=== PATIENT | male | born 1960 | race African-American/Black ===

== ENCOUNTER 2022-01-11 11:14 | Emergency (ER) | payer MEDICARE, OTHER ==
[~2022-01-11] VITALS: Ht 172.7 cm; Wt 70.0 kg
[~2022-01-11 11:14] MED LIST: ACET-704 PO; AMLO-187 PO; ASPI-482 PO; ATOR20TA58 PO; Bumetanide PO; CHOL10003 PO; CLON0.3T PO; CLOP75TA57 PO; HYDR100T24 PO; Hydralazine Hcl PO; INSU100I13 SQ; INSU100I17 SQ; LABE200T24 PO; LOSA-73 PO; METO5TAB PO; SENN8.6T99 PO; TRAZ-118 PO
[2022-01-11 11:40] LABS: BASO # 0.1 x10^3/uL (0.0-0.2); BASO % 3 % (0-3); EOS # 0.2 x10^3/uL (0.0-0.7); EOS % 5 % (0-3); HEMATOCRIT 33.4 % (39.0-53.0); HEMOGLOBIN 10.6 g/dL (13.0-17.5); LYMPH # 1.3 x10^3/uL (1.0-4.8); LYMPH % 31 % (24-48); MEAN CORPUSCULAR HEMOGLOBIN 31 pg (25-35); MEAN CORPUSCULAR HGB CONC 32 g/dL (31-37); MEAN CORPUSCULAR VOLUME 98 fL (79-100); MONO # 0.5 x10^3/uL (0.0-1.1); MONO % 12 % (0-9); NEUT % 49 % (31-73); PLATELET COUNT 140 x10^3/uL (140-400); RED BLOOD COUNT 3.41 x10^6/uL (4.30-5.70); RED CELL DISTRIBUTION WIDTH 14.2 % (11.5-14.5); WHITE BLOOD COUNT 4.1 x10^3/uL (4.0-11.0)
[2022-01-11 11:47] LABS: CALCIUM 8.7 mg/dL (8.5-10.1); CREATININE 8.9 mg/dL (0.7-1.3); GFR 7.4; POTASSIUM 4.6 mmol/L (3.5-5.1)
[2022-01-11 11:55] LABS: ALBUMIN 3.6 g/dL (3.4-5.0); ALBUMIN/GLOBULIN RATIO 1.1 (1.0-1.7); MAGNESIUM 2.7 mg/dL (1.8-2.4); TOTAL BILIRUBIN 0.3 mg/dL (0.2-1.0)
--- NOTE | 2022-01-11 13:35 | PHYS DOC ---
Past Medical History Past Surgical History: Other Smoking Status: Never Smoker Alcohol Use: None General Adult EDM: Chief Complaint: HYPOGLYCEMIA HPI: HPI: Patient is a 61-year-old male who presents emergency department via EMS wallpaper cleaner transport. Personal Banking Representative reports they were called to the dialysis unit [facility] in [facility] for unresponsive patient wallpaper cleaner reports patient's initial blood sugar was 31, difficulty starting IV line was given 1 mg of glucagon and transported to the emergency department, repeat in route blood glucose 79. Patient arrives and is alert and oriented x3 stating that he has no chief complaint, feels a little foggy in the head, did not eat after taking his morning insulin dosing, states he just went to dialysis to have his Tuesday hemodialysis performed. Patient denies physical complaints or physical concerns. Review of Systems: Review of Systems: 14 body systems of review of systems have been reviewed. See HPI for pertinent positives and negative responses, otherwise all other systems are negative, nonpertinent or noncontributory. Constitutional: Negative except as outlined in HPI above. Skin: Negative except as outlined in HPI above. Eyes: Negative except as outlined in HPI above. HENT: Negative except as outlined in HPI above. Respiratory: Negative except as outlined in HPI above. Cardiovascular: Negative except as outlined in HPI above. GI: Negative except as outlined in HPI above. : Negative except as outlined in HPI above. Musculoskeletal: Negative except as outlined in HPI above. Integument: Negative except as outlined in HPI above. Neurologic: Negative except as outlined in HPI above. Endocrine: Negative except as outlined in HPI above. Lymphatic: Negative except as outlined in HPI above. Psychiatric: Negative except as outlined in HPI above. Heart Score: C/O Chest Pain: No Risk Factors: Risk Factors: DM, Current or recent (<one month) smoker, HTN, HLP, family history of CAD, obesity. Risk Scores: Score 0 - 3: 2.5% MACE over next 6 weeks - Discharge Home Score 4 - 6: 20.3% MACE over next 6 weeks - Admit for Clinical Observation Score 7 - 10: 72.7% MACE over next 6 weeks - Early Invasive Strategies Allergies: Allergies: Allergies Coded Allergies Type Severity Reaction Last Updated Verified rosuvastatin Allergy Intermediate 01/11/22 No tramadol Allergy Intermediate 01/11/22 Yes nitroglycerin Adverse Reaction Intermediate Nausea and Vomiting 01/11/22 Yes Physical Exam: PE: Constitutional: Well developed, well nourished, no acute distress, non-toxic appearance. 61-year-old male in no apparent distress. HENT: Normocephalic, atraumatic. Eyes: Conjunctiva normal, no discharge. Neck: Normal range of motion, no stridor. Cardiovascular: No cyanosis appreciated, distal cap refill less than 2 seconds. Lungs & Thorax: Patient is in no respiratory distress, no audible adventitious lung sounds appreciated. Abdomen: Nontender, no abnormalities noted. Skin: Warm, dry, no erythema, no rash. Back: No tenderness, no deformities. Extremities: No tenderness, no cyanosis, no clubbing, ROM intact, no edema. Patient has dialysis fistula to left upper extremity with positive bruit and thrill. Neurologic: Alert and oriented X 3, normal motor function, normal sensory function, no focal deficits noted. Psychologic: Affect normal, judgement normal, mood normal. Current Patient Data: Labs: Laboratory Tests Test 01/11/22 11:18 01/11/22 11:20 01/11/22 13:27 Glucose (Fingerstick) 91 mg/dL (70-99) 148 mg/dL (70-99) H White Blood Count 4.1 x10^3/uL (4.0-11.0) Red Blood Count 3.41 x10^6/uL (4.30-5.70) L Hemoglobin 10.6 g/dL (13.0-17.5) L Hematocrit 33.4 % (39.0-53.0) L Mean Corpuscular Volume 98 fL (79-100) Mean Corpuscular Hemoglobin 31 pg (25-35) Mean Corpuscular Hemoglobin Concent 32 g/dL (31-37) Red Cell Distribution Width 14.2 % (11.5-14.5) Platelet Count 140 x10^3/uL (140-400) Neutrophils (%) (Auto) 49 % (31-73) Lymphocytes (%) (Auto) 31 % (24-48) Monocytes (%) (Auto) 12 % (0-9) H Eosinophils (%) (Auto) 5 % (0-3) H Basophils (%) (Auto) 3 % (0-3) Neutrophils # (Auto) 2.0 x10^3/uL (1.8-7.7) Lymphocytes # (Auto) 1.3 x10^3/uL (1.0-4.8) Monocytes # (Auto) 0.5 x10^3/uL (0.0-1.1) Eosinophils # (Auto) 0.2 x10^3/uL (0.0-0.7) Basophils # (Auto) 0.1 x10^3/uL (0.0-0.2) Sodium Level 142 mmol/L (136-145) Potassium Level 4.6 mmol/L (3.5-5.1) Chloride Level 106 mmol/L (98-107) Carbon Dioxide Level 26 mmol/L (21-32) Anion Gap 10 (6-14) Blood Urea Nitrogen 47 mg/dL (8-26) H Creatinine 8.9 mg/dL (0.7-1.3) H Estimated GFR (Cockcroft-Gault) 7.4 BUN/Creatinine Ratio 5 (6-20) L Glucose Level 105 mg/dL (70-99) H Calcium Level 8.7 mg/dL (8.5-10.1) Phosphorus Level 3.0 mg/dL (2.6-4.7) Magnesium Level 2.7 mg/dL (1.8-2.4) H Total Bilirubin 0.3 mg/dL (0.2-1.0) Aspartate Amino Transferase (AST) 15 U/L (15-37) Alanine Aminotransferase (ALT) 21 U/L (16-63) Alkaline Phosphatase 116 U/L (46-116) Total Protein 7.0 g/dL (6.4-8.2) Albumin 3.6 g/dL (3.4-5.0) Albumin/Globulin Ratio 1.1 (1.0-1.7) Laboratory Tests 01/11/22 11:20 Laboratory Tests 01/11/22 11:20 Vital Signs: Vital Signs Date Time Temp Pulse Resp B/P (MAP) Pulse Ox O2 Delivery O2 Flow Rate FiO2 01/11/22 11:29 98.4 75 16 128/65 (86) 97 Room Air 98.4 EKG: EKG: [] Radiology/Procedures: Radiology/Procedures: [] Course & Med Decision Making: Course & Med Decision Making Pertinent Labs and Imaging studies reviewed. (See chart for details) 61-year-old male, vital signs reviewed, resents emergency department transported by EMS for altered mental status with blood sugar 31. Physical examination is unremarkable, will feed patient and repeat blood sugar, CBC, CMP. Urinalysis assay. The patient has not given urine sample, reports he does not make much urine, patient CBC and CMP unremarkable except for BUN and creatinine consistent with needing hemodialysis, patient's repeat bedside fingerstick 148, I called the [facility] dialysis center states they are able to take patient at this time, discussed with patient eating after taking morning insulin in the future, upon reevaluation of the patient, patient states he feels fine and is ready to be discharged, discussed with patient traveling straight to the [facility] for hemodialysis today, patient has family member at bedside who will drive him there. Discussed with patient strict follow-up with primary care soon, return ER precautions and concerns were reviewed, patient gave verbal understanding of and is amenable to ED discharge planning. Discussed with the patient all findings and diagnostic testing as well as the need to follow-up with their primary care provider for further evaluation and treatment or return to the ED if any new or worsening symptoms. Strict return precautions were also discussed at length, the patient voiced understanding and agreement with the discharge planning. The patient was nontoxic in appearance, in no apparent distress, and hemodynamically stable at the time of disposition. Shakila Disclaimer: Shakila Disclaimer: This electronic medical record was generated, in whole or in part, using a voice recognition dictation system. Departure Departure Impression: Primary Impression: Hypoglycemia Additional Impression: History of end stage renal disease Disposition: HOME / SELF CARE / HOMELESS Condition: GOOD Referrals: NO PCP (PCP) Additional Instructions: You were transported today to the emergency department from your dialysis center for altered mental status. The transporting wallpaper cleaner noticed your blood sugar was 31 and gave you a intramuscular injection of glucagon. When you arrived to the emergency department you were fed, your blood glucose was monitored, you had not shown any signs of glycemia or hyperglycemia, your lab is within normal limits other than your kidney function test. Your final glucose in the emergency department was 148. I have called the [facility] dialysis unit and they are ready to accept you for your Tuesday hemodialysis. Please go directly to the dialysis unit for hemodialysis today. Please remember to eat breakfast after taking your morning dialysis in the future to prevent any further hypoglycemic episodes. Thank you for visiting our Emergency Department. It was a pleasure taking care of you today in the emergency department and we appreciate you trusting us with your care. If any additional problems come up don't hesitate to return to visit us. Please follow up with your primary care provider so they can plan additional care if needed and know about the problem that you had. If symptoms worsen come back to the Emergency Department. Any concerning symptoms that start such as chest pain, shortness of air, weakness or numbness on one side of the body, running high fevers or any other concerning symptoms return to the ER. MILLIE HAGER APRN Jan 11, 2022 13:35
[2022-01-11 13:45] VITALS: BP 139/65
== END 2022-01-11 13:49 | disposition home or self-care (01) ==
LOC: ER 11:14
DX: E16.2 Hypoglycemia, unspecified (principal); N18.6 End stage renal disease; Z99.2 Dependence on renal dialysis; Z88.6 Allergy status to analgesic agent; Z88.8 Allergy status to other drugs, medicaments and biological substances
CPT/HCPCS: 36415; 80053; 82962; 83735; 84100; 85025; 99283

== ENCOUNTER 2022-04-02 14:00 | Inpatient (IN) | payer MEDICARE ==
[~2022-04-02] VITALS: Ht 172.7 cm; Wt 76.2 kg
--- NOTE | 2022-04-02 14:12 | PHYS DOC ---
Past Medical History Past Surgical History: Other Smoking Status: Never Smoker Alcohol Use: None General Adult EDM: Chief Complaint: SYNCOPE HPI: HPI: Patient is a 61 year old male who presents with was at [facility] dialysis in the [place] today and the staff state that the needle had come out and patient was bleeding profusely and syncopal. Staff states that the patient was unconscious for 5 minutes and he had 500 to 750 cc of blood on the floor under him. They gave him 600 mL of normal saline. Patient is alert and oriented x4 this time. Patient states he was feeling fine prior. He complains of generalized weakness, lethargy, " vision is not as bright", shortness of breath, chest pain. Rates pain a 6 out of 10. He has a history of defibrillator pacemaker, diabetes, hypertension, cardiac arrest, NM, renal failure. He takes a baby aspirin a day. He gets dialysis Fridays. Review of Systems: Review of Systems: Constitutional: Denies fever or chills. [] Eyes: Denies change in visual acuity. +Vision dark [] HENT: Denies nasal congestion or sore throat. [] Respiratory: Denies cough or +shortness of breath. [] Cardiovascular: +chest pain or denies edema. [] GI: Denies abdominal pain, nausea, vomiting, bloody stools or diarrhea. [] : Denies dysuria. [] Musculoskeletal: Denies back pain or joint pain. +generalized weakness[] Integument: Denies rash. [] Neurologic: Denies headache, focal weakness or sensory changes. +syncope [] Endocrine: Denies polyuria or polydipsia. [] Lymphatic: Denies swollen glands. [] Psychiatric: Denies depression or anxiety. [] Heart Score: C/O Chest Pain: Yes HEART Score for Chest Pain: HEART Score for Chest Pain Response (Comments) Value History Moderately Suspicious 1 ECG Nonspecific Repolarizatio 1 Age >45 - < 65 1 Risk Factors >3 Risk Factors or Hx CAD 2 Troponin < Normal Limit 0 Total 5 Risk Factors: Risk Factors: DM, Current or recent (<one month) smoker, HTN, HLP, family history of CAD, obesity. Risk Scores: Score 0 - 3: 2.5% MACE over next 6 weeks - Discharge Home Score 4 - 6: 20.3% MACE over next 6 weeks - Admit for Clinical Observation Score 7 - 10: 72.7% MACE over next 6 weeks - Early Invasive Strategies Allergies: Allergies: Allergies Coded Allergies Type Severity Reaction Last Updated Verified rosuvastatin Allergy Intermediate 01/11/22 No tramadol Allergy Intermediate 01/11/22 Yes nitroglycerin Adverse Reaction Intermediate Nausea and Vomiting 01/11/22 Yes Physical Exam: PE: Constitutional: Well developed, well nourished, no acute distress, non-toxic appearance. [] HENT: Normocephalic, atraumatic, bilateral external ears normal, oropharynx moist, no oral exudates, nose normal. [] Eyes: PERRLA, EOMI, conjunctiva normal, no discharge. [] Neck: Normal range of motion, no tenderness, supple, no stridor. [] Cardiovascular:Heart rate regular paced rhythm, no murmur [] Lungs & Thorax: Bilateral breath sounds clear to auscultation [] Abdomen: Bowel sounds normal, soft, no tenderness, no masses, no pulsatile masses. [] Skin: Warm, dry, no erythema, no rash. [] Back: No tenderness, no CVA tenderness. [] Extremities: No tenderness, no cyanosis, no clubbing, ROM intact, no edema. [] Neurologic: Alert and oriented X 3, normal motor function, normal sensory function, no focal deficits noted. [] Psychologic: Affect normal, judgement normal, mood normal. [] EKG: EK and read by Dr. Roland as a sinus rhythm with atrial premature complexes but no STEMI Radiology/Procedures: Radiology/Procedures: [] Impression: [facility] [address] [place] [address] IMAGING REPORT Signed PATIENT: Wyatt Aviles ACCOUNT: [id number] : 1960 LOCATION: ER AGE: 61 SEX: M EXAM STATUS: REG ER ORD. PHYSICIAN: MARYLIN ANAYA APRN REASON: syncope PROCEDURE: CT HEAD WO CONTRAST Exam Date: 04/02/2022 3:[address] HEAD/BRAIN WO Indication: Reason: syncope / Spl. Instructions: / History: . TECHNIQUE: Head CT was performed without intravenous contrast. One or more of the following dose reduction techniques were utilized: *Automated exposure control (AEC) *Adjustment of mA and/or kV according to patient size *Use of iterative reconstruction technique *CT scan done according to ALARA, or ALARA/IMAGE GENTLY FINDINGS: The ventricles and sulci are normal for the patient's stated age. Patchy ill- defined low attenuation areas in the subcortical and periventricular white matter bilaterally are consistent with microvascular disease. There is no evidence of acute intracranial hemorrhage, extra-axial collection, mass effect, midline shift, or acute territorial infarct. No lesion of the skull base or the calvarium is seen. The visualized paranasal sinuses, mastoid air cells and orbits are normal in appearance. IMPRESSION: No evidence for acute intracranial abnormality. Microvascular disease noted. Electronically signed by: Tita Morgan MD (04/02/2022 3:56 PM) [id number] DICTATED and SIGNED BY: TITA MORGAN MD DATE: 04/02/22 1557 [facility] [address] [place] [address] IMAGING REPORT Signed PATIENT: Wyatt Aviles ACCOUNT: [id number] : 1960 LOCATION: ER AGE: 61 SEX: M EXAM STATUS: REG ER ORD. PHYSICIAN: MARYLIN ANAYA APRN REASON: chest pain, PROCEDURE: PORTABLE CHEST 1V Single AP view of the chest. Comparison: 07/26/2014. Indication: Chest pain Findings: Loop recorder device is identified. The heart is at the upper limits of normal. There is no pneumothorax or effusion. No air space or interstitial disease. Impression: 1. No acute cardiopulmonary process. Electronically signed by: Aidan Adams MD (04/02/2022 3:42 PM) [id number] DICTATED and SIGNED BY: AIDAN ADAMS MD DATE: 04/02/22 1544 Course & Med Decision Making: Course & Med Decision Making Pertinent Labs and Imaging studies reviewed. (See chart for details) See HPI. Alert and oriented x4. Speaks in full clear sentences. Answers questions correctly. Unsure of who his coal cager is at this time. Seems slightly lethargic. Moving all extremities equally with equal strength and switchboard clerk. Vital signs at this time are within normal limits. Lungs are clear to auscultation all lobes. Patient is on Plavix. CT head and chest x-ray show no acute findings. Patient's orthostatic vitals are positive for orthostatic hypotension. Layin/79, 60; sitting 130/60, 66 heart rate; standing 116/53, 62 heart rate. When patient sat up and stood up he became dizzy both times. Patient states he still feeling dizzy as he sitting in the bed. We have had a hard time getting a line and blood on this patient. Nursing staff still trying to get a peripheral line on this patient. Patient states he would like to stay for admission. Patient admitted to hospitalist. [] Shakila Disclaimer: Shakila Disclaimer: This electronic medical record was generated, in whole or in part, using a voice recognition dictation system. Departure Departure Impression: Primary Impression: Orthostatic hypotension Additional Impressions: Syncope Qualified Codes: R55 - Syncope and collapse Dizziness Disposition: ADMITTED INPATIENT Admitting Physician: SEB Condition: STABLE Referrals: NO PCP (PCP) MARYLIN ANAYA COTTAGE MASTER April 02, 2022 14:12
[2022-04-02 15:05] LABS: BASO # 0.1 x10^3/uL (0.0-0.2); BASO % 1 % (0-3); EOS # 0.1 x10^3/uL (0.0-0.7); EOS % 3 % (0-3); HEMATOCRIT 30.3 % (39.0-53.0); HEMOGLOBIN 9.8 g/dL (13.0-17.5); LYMPH # 1.3 x10^3/uL (1.0-4.8); LYMPH % 30 % (24-48); MEAN CORPUSCULAR HEMOGLOBIN 32 pg (25-35); MEAN CORPUSCULAR HGB CONC 32 g/dL (31-37); MEAN CORPUSCULAR VOLUME 98 fL (79-100); MONO # 0.5 x10^3/uL (0.0-1.1); MONO % 12 % (0-9); NEUT # 2.3 x10^3/uL (1.8-7.7); NEUT % 54 % (31-73); PLATELET COUNT 126 x10^3/uL (140-400); RED CELL DISTRIBUTION WIDTH 14.7 % (11.5-14.5); WHITE BLOOD COUNT 4.3 x10^3/uL (4.0-11.0)
[2022-04-02 15:26] LABS: CALCIUM 7.9 mg/dL (8.5-10.1); CREATININE 5.8 mg/dL (0.7-1.3); GFR 12.1; POTASSIUM 4.8 mmol/L (3.5-5.1)
[2022-04-02 15:33] LABS: ALBUMIN 2.9 g/dL (3.4-5.0); MAGNESIUM 2.2 mg/dL (1.8-2.4); TOTAL BILIRUBIN 0.4 mg/dL (0.2-1.0); TOTAL PROTEIN 5.8 g/dL (6.4-8.2)
--- NOTE | 2022-04-02 15:45 | RAD ---
Single AP view of the chest. Comparison: 07/26/2014. Indication: Chest pain Findings: Loop recorder device is identified. The heart is at the upper limits of normal. There is no pneumoth orax or effusion. No air space or interstitial disease. Impression: 1. No acute cardiopulmonary process. Electronically signed by: Aidan Adams MD (04/02/2022 3:42 PM) [id number]
--- NOTE | 2022-04-02 15:58 | RAD ---
Exam Date: 04/02/2022 3:[address] HEAD/BRAIN WO Indication: Reason: syncope / Spl. Instructions: / History: . TECHNIQUE: Head CT was performed without intravenous contrast. One or more of the following dose re duction techniques were utilized: *Automated exposure control (AEC) *Adjustment of mA and/or kV according to patient size *Use of iterative reconstruction technique *CT scan done according to ALARA, or ALARA/IMAGE GENTLY FINDINGS: The ventricles and sulci are normal for the patient's stated age. Patchy ill-defined low attenuation areas in the subcortical and periventricular white matter bilaterally are consistent with microvascu lar disease. There is no evidence of acute intracranial hemorrhage, extra-axial collection, mass ef fect, midline shift, or acute territorial infarct. No lesion of the skull base or the calvarium is se en. The visualized paranasal sinuses, mastoid air cells and orbits are normal in appearance. IMPRESSION: No evidence for acute intracranial abnormality. Microvascular disease noted. Electronically signed by: Tima Morgan MD (04/02/2022 3:56 PM) [id number]
[2022-04-02] MEDS ORDERED: IV NORMAL SALINE 500ML BAG 500 ML IV ONE (17:30)
[2022-04-02] MEDS ORDERED: ACETAMINOPHEN 325 MG TABLET. PO PRN (19:30)
[2022-04-02] MEDS ORDERED: ELECTROLYTE (NON-ICU) PROTOCOL. MC PRN (19:30)
[2022-04-02] MEDS ORDERED: oxyCODONE/APAP 5/325 1 TAB TABLET PO PRN (19:30)
[2022-04-02] MEDS ORDERED: CALCIUM CARBONATE 500 MG TAB.CHEW PO PRN (19:30)
[2022-04-02] MEDS ORDERED: traZODone 50 MG TABLET. PO PRN (19:30)
--- NOTE | 2022-04-02 19:33 | PDOC1 ---
History and Physical Date of Service: DOS: DATE: 04/02/22 TIME: 19:13 Chief Complaint: Chief Complain: syncope during dialysis History of Present Illness: HPI: 61-year-old male at dialysis today in [place] and somehow needle to access dialysis line came out and patient had significant blood loss, reported 500-750 cc. He did have syncope for a few minutes as well after the event. He was given fluid bolus soon and brought here. In his usual state of health prior to this event. In ED he did report ongoing weakness lethargy shortness of breath. Has never had an event like this before. In emergency room work-up showed hemoglobin 9.8. In December was 10.6. Normal cardiac workup thus far. Admitted for further evaluation. Past Medical/Surgical History: PMH/PSH: ESRD MWF dialysis, DM2, HTN Allergies: Allergies: Coded Allergies: rosuvastatin (Unverified Allergy, Intermediate, 01/11/22) tramadol (Verified Allergy, Intermediate, 01/11/22) nitroglycerin (Verified Adverse Reaction, Intermediate, Nausea and Vomiting, 01/11/22) Family History: Family History: HTN Social History: Social History: Denies alcohol tobacco drug use Current Medications: Current Medications Current Medications Sodium Chloride 500 ml @ 500 mls/hr 1X ONCE IV Last administered on 04/02/22at 18:20; Start 04/02/22 at 17:30; Stop 04/02/22 at 18:29; Status DC Active Scripts Active [Bumetanide] 1 MG Tablet 2 Mg PO [id number] Plavix (Clopidogrel Bisulfate) 75 Mg Tablet 75 Mg PO DAILYWBKFT Zaroxolyn (Metolazone) 5 Mg Tablet 5 Mg PO TID Cozaar (Losartan Potassium) 50 Mg Tablet 50 Mg PO DAILY Trandate (Labetalol Hcl) 200 Mg Tablet 100 Mg PO BID [Hydralazine Hcl] 50 MG Tablet 100 Mg PO TID Novolog Flexpen (Insulin Aspart) 100 Unit/1 Ml Insuln.pen 18 Unit SQ DAILYBFRSUP 30 Days Novolog Flexpen (Insulin Aspart) 100 Unit/1 Ml Insuln.pen 19 Unit SQ NOON 30 Days Lantus Solostar (Insulin Glargine,Hum.rec.anlog) 100 Unit/1 Ml Insuln.pen 32 Unit SQ HS 30 Days Reported Aspir 81 (Aspirin) 81 Mg Tablet.dr 81 Mg PO DAILY Clonidine Hcl 0.3 Mg Tablet 0.3 Mg PO TID Trazodone Hcl 50 Mg Tablet 50 Mg PO PRN QHS PRN Senokot (Sennosides) 8.6 Mg Tablet 8.6 Mg PO PRN DAILY PRN Hydralazine Hcl 100 Mg Tablet 1 Tab PO TID Tylenol With Codeine #3 Tablet (Acetaminophen With Codeine) 1 Each Tablet 1 Tab PO Q6HRS Vitamin D3 (Cholecalciferol (Vitamin D3)) 1,000 Unit Tablet 1,000 Unit PO DAILY Atorvastatin Calcium 20 Mg Tablet 20 Mg PO HS Amlodipine Besylate 10 Mg Tablet 10 Mg PO DAILY ROS: Review of Systems Review of System Unless noted in HPI 14 point review of systems is negative Physical Exam: Vital Signs: Vital Signs Date Time Temp Pulse Resp B/P (MAP) Pulse Ox O2 Delivery O2 Flow Rate FiO2 04/02/22 14:06 96.5 60 20 124/67 (86) 98 Room Air 96.5 Physcial Exam: GEN: No apparent distress. Alert and oriented HEENT: Normal cephalic, atraumatic, external auditory canals are patent EYES: Extraocular muscles are intact, pupil are equally round and reactive to light and accommodation MUSCULOSKELETAL: Well developed , well nourished, good range of motion ENDOCRINE: No thyromegaly was palpated LYMPHATICS: No cervical chain or axillary nodes were noted HEMATOPOIETIC: No bruising NECK: Supple, no JVD, no thyromegaly was noted LUNGS: Clear to auscultation in all lung gomez without rhonchi or wheezing HEART: RRR, S!, S2 present. Peripheral pulses intact, no obvious murmurs noted ABDOMEN: Soft, nontender. Positive bowel sounds, no organomegaly, normal bowel sounds EXTREMITIES: Without clubbing, cyanosis, or edema. Pedal pulses intact. Negative Homans sign NEUROLOGIC: Normal speech and tone. A&O x 3, moves all extremities, no obvious focal deficits PSYCHIATRIC: Normal affect, normal mood. Stable SKIN: No ulcerations or rashes, good skin turgor, no jaundice VASCULAR: Good capillary refill, neurovascular bundle appears to be intact Labs: Labs: Laboratory Tests Test 04/02/22 14:44 04/02/22 17:55 White Blood Count 4.3 x10^3/uL (4.0-11.0) Red Blood Count 3.10 x10^6/uL (4.30-5.70) Hemoglobin 9.8 g/dL (13.0-17.5) Hematocrit 30.3 % (39.0-53.0) Mean Corpuscular Volume 98 fL (79-100) Mean Corpuscular Hemoglobin 32 pg (25-35) Mean Corpuscular Hemoglobin Concent 32 g/dL (31-37) Red Cell Distribution Width 14.7 % (11.5-14.5) Platelet Count 126 x10^3/uL (140-400) Neutrophils (%) (Auto) 54 % (31-73) Lymphocytes (%) (Auto) 30 % (24-48) Monocytes (%) (Auto) 12 % (0-9) Eosinophils (%) (Auto) 3 % (0-3) Basophils (%) (Auto) 1 % (0-3) Neutrophils # (Auto) 2.3 x10^3/uL (1.8-7.7) Lymphocytes # (Auto) 1.3 x10^3/uL (1.0-4.8) Monocytes # (Auto) 0.5 x10^3/uL (0.0-1.1) Eosinophils # (Auto) 0.1 x10^3/uL (0.0-0.7) Basophils # (Auto) 0.1 x10^3/uL (0.0-0.2) Sodium Level 142 mmol/L (136-145) Potassium Level 4.8 mmol/L (3.5-5.1) Chloride Level 103 mmol/L (98-107) Carbon Dioxide Level 25 mmol/L (21-32) Anion Gap 14 (6-14) Blood Urea Nitrogen 26 mg/dL (8-26) Creatinine 5.8 mg/dL (0.7-1.3) Estimated GFR (Cockcroft-Gault) 12.1 BUN/Creatinine Ratio 4 (6-20) Glucose Level 186 mg/dL (70-99) Calcium Level 7.9 mg/dL (8.5-10.1) Magnesium Level 2.2 mg/dL (1.8-2.4) Total Bilirubin 0.4 mg/dL (0.2-1.0) Aspartate Amino Transf (AST/SGOT) 10 U/L (15-37) Alanine Aminotransferase (ALT/SGPT) 13 U/L (16-63) Alkaline Phosphatase 83 U/L (46-116) Creatine Kinase 164 U/L (39-308) Troponin I High Sensitivity 21 ng/L (4-75) 24 ng/L (4-75) Total Protein 5.8 g/dL (6.4-8.2) Albumin 2.9 g/dL (3.4-5.0) Albumin/Globulin Ratio 1.0 (1.0-1.7) Lipase 25 U/L (73-393) Prothrombin Time 14.0 SEC (11.7-14.0) Prothromb Time International Ratio 1.1 (0.8-1.1) Laboratory Tests Test 04/02/22 14:44 04/02/22 17:55 White Blood Count 4.3 x10^3/uL (4.0-11.0) Red Blood Count 3.10 x10^6/uL (4.30-5.70) Hemoglobin 9.8 g/dL (13.0-17.5) Hematocrit 30.3 % (39.0-53.0) Mean Corpuscular Volume 98 fL (79-100) Mean Corpuscular Hemoglobin 32 pg (25-35) Mean Corpuscular Hemoglobin Concent 32 g/dL (31-37) Red Cell Distribution Width 14.7 % (11.5-14.5) Platelet Count 126 x10^3/uL (140-400) Neutrophils (%) (Auto) 54 % (31-73) Lymphocytes (%) (Auto) 30 % (24-48) Monocytes (%) (Auto) 12 % (0-9) Eosinophils (%) (Auto) 3 % (0-3) Basophils (%) (Auto) 1 % (0-3) Neutrophils # (Auto) 2.3 x10^3/uL (1.8-7.7) Lymphocytes # (Auto) 1.3 x10^3/uL (1.0-4.8) Monocytes # (Auto) 0.5 x10^3/uL (0.0-1.1) Eosinophils # (Auto) 0.1 x10^3/uL (0.0-0.7) Basophils # (Auto) 0.1 x10^3/uL (0.0-0.2) Sodium Level 142 mmol/L (136-145) Potassium Level 4.8 mmol/L (3.5-5.1) Chloride Level 103 mmol/L (98-107) Carbon Dioxide Level 25 mmol/L (21-32) Anion Gap 14 (6-14) Blood Urea Nitrogen 26 mg/dL (8-26) Creatinine 5.8 mg/dL (0.7-1.3) Estimated GFR (Cockcroft-Gault) 12.1 BUN/Creatinine Ratio 4 (6-20) Glucose Level 186 mg/dL (70-99) Calcium Level 7.9 mg/dL (8.5-10.1) Magnesium Level 2.2 mg/dL (1.8-2.4) Total Bilirubin 0.4 mg/dL (0.2-1.0) Aspartate Amino Transf (AST/SGOT) 10 U/L (15-37) Alanine Aminotransferase (ALT/SGPT) 13 U/L (16-63) Alkaline Phosphatase 83 U/L (46-116) Creatine Kinase 164 U/L (39-308) Troponin I High Sensitivity 21 ng/L (4-75) 24 ng/L (4-75) Total Protein 5.8 g/dL (6.4-8.2) Albumin 2.9 g/dL (3.4-5.0) Albumin/Globulin Ratio 1.0 (1.0-1.7) Lipase 25 U/L (73-393) Prothrombin Time 14.0 SEC (11.7-14.0) Prothromb Time International Ratio 1.1 (0.8-1.1) Assessment/Plan Assessment/Plan Syncope and acute blood loss during dialysis, dizziness, anemia likely 2/2 esrd. ESRD Tuesday HD. History diabetes hypertension -Undergoing dialysis today somehow during dialysis needle/line popped out and patient had acute blood loss -Brought here. Hemoglobin only one-point down from recent in December. Continue to monitor -Bleeding controlled no signs of further blood loss. Okay to resume home antithrombotics aspirin Plavix -Positive orthostatics. -We will hold off home clonidine hydralazine for now with normal blood pressure and orthostatics -Will resume other home BP meds -Nephrology consult to see if dialysis session needed -home insulin resumed -DVT ppx -normal cardiac workup thus far Justifications for Admission Other Justification KARLEE SCHWAB MD April 02, 2022 19:33
[2022-04-02] MEDS ORDERED: DEXTROSE 50% 25 GM / 50ML DISP.SYRIN. IV PRN (19:45)
[2022-04-02 19:50] VITALS: BP 129/65
--- NOTE | 2022-04-02 20:00 | NUR ---
Patient, Wyatt Aviles, 61 y/o male, admitted to room 536, plan of care discussed, patient asking where his blood glucose scanner is, a call to [facility] nurse reports not in the room, the patient thinking he may have left it in the ambulance, he calls daughter, who reports she took it home with her, patient reports he has a pacemaker, which is "Internal", not under skin of left chest area, "its closer to my heart...they put it in about seven months ago.", appears to be v-paced. Bed alarm is engaged for syncope, explained this to patient, who verbalized to understand, but also wants a bedside commode, he is, again, instructed to call for assistance, to monitor.
[2022-04-02] MEDS ORDERED: cloNIDine HCL 0.3 MG TABLET PO SCH (21:00)
[2022-04-02] MEDS: SENNOSIDES/DOCUSATE 8.6/50MG TABLET. PO SCH (21:00)
[2022-04-02] MEDS ORDERED: INSULIN GLARGINE SYRINGE. SQ SCH (21:00)
[2022-04-02] MEDS: ATORVASTATIN CALCIUM 20 MG TABLET PO SCH (21:39)
[2022-04-02] MEDS: oxyCODONE/APAP 5/325 1 TAB TABLET PO PRN (21:40)
[2022-04-02] MEDS: LABETALOL HCL 200 MG TABLET PO SCH (21:41)
[2022-04-02] MEDS: HEPARIN for SUB-Q USE 5,000 UNIT/ML VIAL. SQ SCH (21:51)
[2022-04-02 23:00] VITALS: BP 137/53
[2022-04-02] MEDS ORDERED: fentaNYL PF VIAL 100 MCG/2 ML VIAL IVP ONE (23:00)
--- NOTE | 2022-04-02 23:30 | NUR ---
The patient's daughter, Jessica Aviles, called to check on pt, she is informed that he requested fentanyl, and was given a one-time dose, his daughter requests that we not give him any other narcotics like this, and that his oxycodone is ok to give, 'those type of meds make him loopy'. Says he takes the oxycodone, and tylenol at home for his leg pain, monitoring..
[2022-04-03] VITALS (7 sets, daily range): BP systolic 84–132; BP diastolic 43–81
[2022-04-03] MEDS: oxyCODONE/APAP 5/325 1 TAB TABLET PO PRN ×3 (01:55→18:32)
[2022-04-03] MEDS ORDERED: INSU100I13 SQ (06:10)
[2022-04-03] MEDS ORDERED: INSU100V11 IJ (06:12)
[2022-04-03] MEDS: LABETALOL HCL 200 MG TABLET PO SCH ×2 (08:38→22:11)
[2022-04-03] MEDS: ASPIRIN ENTERIC COATED 81 MG TABLET.DR. PO SCH (08:38)
[2022-04-03] MEDS: CLOPIDOGREL BISULFATE 75 MG TABLET PO SCH (08:38)
[2022-04-03] MEDS: CHOLECALCIFEROL (VITAMIN D3) 1,000 UNIT TABLET PO SCH (08:38)
[2022-04-03] MEDS: SENNOSIDES/DOCUSATE 8.6/50MG TABLET. PO SCH ×2 (08:38→21:00)
[2022-04-03] MEDS: LOSARTAN POTASSIUM 50 MG TABLET. PO SCH (08:38)
[2022-04-03] MEDS: HEPARIN for SUB-Q USE 5,000 UNIT/ML VIAL. SQ SCH ×2 (08:46→22:20)
[2022-04-03] MEDS: INSULIN LISPRO 300 UNITS/3 ML VIAL. SQ SCH ×6 (08:47→17:00)
--- NOTE | 2022-04-03 09:33 | PDOC ---
[employer] PROGRESS NOTE Date of Service DOS: DATE: 04/03/22 TIME: 09:30 Chief Complaint Chief Complaint Syncope and acute blood loss during dialysis, dizziness, anemia likely 2/2 esrd. ESRD Tuesday HD. History diabetes hypertension -Undergoing dialysis 04/02 somehow during dialysis needle/line popped out and patient had acute blood loss -Brought here. Hemoglobin only one-point down from recent in December. C ontinue to monitor -Bleeding controlled no signs of further blood loss. Okay to resume home antithrombotics aspirin Plavix -Positive orthostatics. -We will hold off home clonidine hydralazine for now with normal blood pressure and orthostatics -Will resume other home BP meds -Nephrology consult to see if dialysis session needed -home insulin resumed --> add morning dose and move lantus to afternoon perpatient request -DVT ppx -normal cardiac workup thus far History of Present Illness History of Present Illness 04/03 Patient evaluated examined at bedside. He was sitting on bedside commode. Said he was still having ongoing dizziness feels like the room spinning even when sitting down; also with some bilateral lower extremity pain. Continue work-up no apparent cause right now. PT OT ordered. Nephrology consult given ESRD status. Follows with cardiology at the [place]; has a pacer in place for history of bradycardia. If remains dizzy throughout today we will likely plan for cards consult tomorrow for further assistance. discussed with bedside RN Vitals/I&O Vitals/I&O: Vital Signs Date Time Temp Pulse Resp B/P (MAP) Pulse Ox O2 Delivery O2 Flow Rate FiO2 04/03/22 08:38 66 120/48 04/03/22 08:37 Room Air 04/03/22 07:00 98.8 18 98 98.8 I & O 04/02/22 04/02/22 04/03/22 15:00 23:00 07:00 Intake Total 200 ml Balance 200 ml Physical Exam General: Alert, Oriented X3, Cooperative Heart: Regular rate, Normal S1, Normal S2 Lungs: Clear Abdomen: Normal bowel sounds, Soft, No tenderness Extremities: No edema, Normal pulses Skin: No significant lesion Labs Labs: Laboratory Tests Test 04/02/22 14:44 04/02/22 17:55 04/02/22 20:17 04/02/22 21:30 White Blood Count 4.3 x10^3/uL (4.0-11.0) Red Blood Count 3.10 x10^6/uL (4.30-5.70) Hemoglobin 9.8 g/dL (13.0-17.5) Hematocrit 30.3 % (39.0-53.0) Mean Corpuscular Volume 98 fL (79-100) Mean Corpuscular Hemoglobin 32 pg (25-35) Mean Corpuscular Hemoglobin Concent 32 g/dL (31-37) Red Cell Distribution Width 14.7 % (11.5-14.5) Platelet Count 126 x10^3/uL (140-400) Neutrophils (%) (Auto) 54 % (31-73) Lymphocytes (%) (Auto) 30 % (24-48) Monocytes (%) (Auto) 12 % (0-9) Eosinophils (%) (Auto) 3 % (0-3) Basophils (%) (Auto) 1 % (0-3) Neutrophils # (Auto) 2.3 x10^3/uL (1.8-7.7) Lymphocytes # (Auto) 1.3 x10^3/uL (1.0-4.8) Monocytes # (Auto) 0.5 x10^3/uL (0.0-1.1) Eosinophils # (Auto) 0.1 x10^3/uL (0.0-0.7) Basophils # (Auto) 0.1 x10^3/uL (0.0-0.2) Sodium Level 142 mmol/L (136-145) Potassium Level 4.8 mmol/L (3.5-5.1) Chloride Level 103 mmol/L (98-107) Carbon Dioxide Level 25 mmol/L (21-32) Anion Gap 14 (6-14) Blood Urea Nitrogen 26 mg/dL (8-26) Creatinine 5.8 mg/dL (0.7-1.3) Estimated GFR (Cockcroft-Gault) 12.1 BUN/Creatinine Ratio 4 (6-20) Glucose Level 186 mg/dL (70-99) Calcium Level 7.9 mg/dL (8.5-10.1) Magnesium Level 2.2 mg/dL (1.8-2.4) Total Bilirubin 0.4 mg/dL (0.2-1.0) Aspartate Amino Transf (AST/SGOT) 10 U/L (15-37) Alanine Aminotransferase (ALT/SGPT) 13 U/L (16-63) Alkaline Phosphatase 83 U/L (46-116) Creatine Kinase 164 U/L (39-308) Troponin I High Sensitivity 21 ng/L (4-75) 24 ng/L (4-75) 26 ng/L (4-75) Total Protein 5.8 g/dL (6.4-8.2) Albumin 2.9 g/dL (3.4-5.0) Albumin/Globulin Ratio 1.0 (1.0-1.7) Lipase 25 U/L (73-393) Prothrombin Time 14.0 SEC (11.7-14.0) Prothromb Time International Ratio 1.1 (0.8-1.1) Glucose (Fingerstick) 302 mg/dL (70-99) Test 04/03/22 08:12 Glucose (Fingerstick) 411 mg/dL (70-99) Assessment and Plan Assessmemt and Plan Problems Medical Problems: (1) Dizziness Status: Acute (2) Orthostatic hypotension Status: Acute (3) Syncope Status: Acute Comment Review of Relevant I have reviewed the following items otf (where applicable) has been applied. Medications: Current Medications Medications (Trade) Dose Ordered Sig/Mindy Route PRN Reason Start Time Stop Time Status Last Admin Dose Admin Sodium Chloride 500 ml @ 500 mls/hr 1X ONCE IV 04/02/22 17:30 04/02/22 18:29 DC 04/02/22 18:20 Amlodipine Besylate (Norvasc) 10 mg DAILY PO 04/03/22 09:00 04/03/22 08:35 Aspirin (Ecotrin) 81 mg DAILY PO 04/03/22 09:00 04/03/22 08:38 Atorvastatin Calcium (Lipitor) 20 mg HS PO 04/02/22 21:00 04/02/22 21:39 Vitamin D (Vitamin D3) 1,000 unit DAILY PO 04/03/22 09:00 04/03/22 08:38 Clopidogrel Bisulfate (Plavix) 75 mg DAILYWBKFT PO 04/03/22 08:00 04/03/22 08:38 Labetalol HCl (Trandate) 100 mg BID PO 04/02/22 21:00 04/03/22 08:38 Losartan Potassium (Cozaar) 50 mg DAILY PO 04/03/22 09:00 04/03/22 08:38 Insulin Glargine (Lantus Syringe) 32 unit QHS SQ 04/02/22 21:00 04/02/22 21:50 Oxycodone/ Acetaminophen (Percocet 5/325) 2 tab PRN Q4HRS PRN PO MODERATE PAIN, SEVERE PAIN 04/02/22 19:30 04/03/22 08:37 Senna/Docusate Sodium (Senna Plus) 1 tab BID PO 04/02/22 21:00 04/03/22 08:38 Heparin Sodium (Porcine) (Heparin Sodium) 5,000 unit Q12HR SQ 04/02/22 21:00 04/03/22 08:46 Insulin Human Lispro (HumaLOG) 0-7 UNITS TIDWMEALS SQ 04/03/22 08:00 04/03/22 08:47 Fentanyl Citrate (Fentanyl 2ml Vial) 50 mcg 1X ONCE IVP 04/02/22 23:00 04/02/22 23:01 DC 04/02/22 22:58 Justifications for Admission Other Justification KARLEE SCHWAB MD April 03, 2022 09:33
[2022-04-03] MEDS: GABAPENTIN 300 MG CAPSULE. PO PRN ×2 (10:15→18:32)
[2022-04-03] MEDS: DICLOFENAC SODIUM 1% TOPICAL GEL 100GM TUBE. TP SCH ×2 (10:16→23:44)
[2022-04-03] MEDS: ONDANSETRON PF 4 MG/2 ML VIAL. IVP PRN (13:07)
[2022-04-03] MEDS: fentaNYL PF VIAL 100 MCG/2 ML VIAL IVP PRN ×2 (13:18→23:44)
[2022-04-03] MEDS: INSULIN GLARGINE SYRINGE. SQ SCH (15:36)
[2022-04-03] MEDS: ATORVASTATIN CALCIUM 20 MG TABLET PO SCH (22:10)
--- NOTE | 2022-04-04 01:15 | EKG ---
[facility] [address] [place] [address] Test Date: 2022-04-02 Test Time: 14:47:57 Pat Name: Wyatt Aviles Department: Room: 536 1 Gender: M Paperhanger Assistant: : 1960 Requested By: MARYLIN ANAYA Order Number: [id number] Reading MD: Ruddy Dale Measurements Intervals [place] Rate: 65 P: 90 IL: 208 QRS: -118 QRSD: 148 T: 65 QT: 448 QTc: 467 Interpretive Statements SINUS RHYTHM COMPLEX(ES) WITH ABERRANT INTRAVENTRICULAR CONDUCTION ATRIAL PREMATURE COMPLEX(ES) ABNORMAL RIGHT SUPERIOR AXIS DEVIATION NON SPECIFIC INTRAVENTRICULAR BLOCK QRS(T) CONTOUR ABNORMALITY CONSISTENT WITH ANTERIOR INFARCT POSSIBLY RECENT Electronically Signed On 04-05-2022 11:23:17 CDT by Ruddy Dale
--- NOTE | 2022-04-04 01:24 | CONS ---
DATE OF CONSULTATION: 04/03/2022 NEPHROLOGY CONSULTATION REQUESTING PHYSICIAN: Hospitalist. REASON FOR CONSULTATION: Renal failure. HISTORY OF PRESENT ILLNESS: The patient is a 61-year-old gentleman with history of diabetes mellitus, hypertension, end-stage renal disease. He undergoes hemodialysis at [facility] under the direction of Dr. Bennett on a [id number] schedule. His vascular access needle became dislodged and he had weight loss. He had syncopal episode and dizziness and as such was brought to the hospital for further evaluation and management. PAST MEDICAL HISTORY: Diabetes mellitus, hypertension, hyperlipidemia, anemia of chronic kidney disease, secondary hyperparathyroidism, renal disease. ALLERGIES: PRAVASTATIN, TRAMADOL, NITROGLYCERIN. MEDICATIONS: Reviewed per medication list. FAMILY HISTORY: Noncontributory other than hypertension. SOCIAL HISTORY: The patient resides with assistance. No alcohol or tobacco use. REVIEW OF SYSTEMS: Other than his history of present illness, remainder of review of systems is unremarkable. PHYSICAL EXAMINATION: GENERAL APPEARANCE: The patient awake, conversant, appropriate. HEENT: Clear. NECK: No increased JVD. LUNGS: Clear. CARDIAC: Without S3 or rub. ABDOMEN: Soft, nontender bruits. EXTREMITIES: Without edema. Right upper extremity AV fistula has good bruit and thrill. NEUROPSYCHIATRIC: Follows appropriately. Appropriate attention to detail. LABORATORY DATA: Hemoglobin 9.8, hematocrit 30%. Sodium 142, potassium 4.8, chloride 103, CO2 of 25, BUN is 26, creatinine 5.8. GFR is 12. IMPRESSION: 1. End-stage renal disease, in setting of diabetic chronic kidney disease and hypertension nephrosclerosis -- hemodialysis dependent on Tuesday, Tuesday and Tuesday. 2. Dislodged vascular access needle -- currently has hemoglobin of 9.8, hematocrit 30%. 3. Dizziness/syncope -- question related to #2 versus other. RECOMMENDATIONS: I agree if the patient remains stable, he can be discharged to home. Otherwise, cardiac evaluation. If he is still in the hospital on Tuesday, we will provide next dialysis here. LIZANDRO DR: Pj TID: [id number]
[2022-04-04 03:00] VITALS: BP 147/67
[2022-04-04 07:00] VITALS: BP 101/50
[2022-04-04] MEDS: INSULIN LISPRO 300 UNITS/3 ML VIAL. SQ SCH ×6 (08:00→17:42)
[2022-04-04] MEDS: LOSARTAN POTASSIUM 50 MG TABLET. PO SCH ×2 (08:57→09:00)
[2022-04-04] MEDS: SENNOSIDES/DOCUSATE 8.6/50MG TABLET. PO SCH ×2 (09:00→21:00)
[2022-04-04] MEDS: ASPIRIN ENTERIC COATED 81 MG TABLET.DR. PO SCH (09:02)
[2022-04-04] MEDS: GABAPENTIN 300 MG CAPSULE. PO PRN (09:02)
[2022-04-04] MEDS: CLOPIDOGREL BISULFATE 75 MG TABLET PO SCH (09:02)
[2022-04-04] MEDS: LABETALOL HCL 200 MG TABLET PO SCH ×2 (09:02→20:59)
[2022-04-04] MEDS: CHOLECALCIFEROL (VITAMIN D3) 1,000 UNIT TABLET PO SCH (09:02)
[2022-04-04] MEDS: DICLOFENAC SODIUM 1% TOPICAL GEL 100GM TUBE. TP SCH ×2 (09:03→21:00)
[2022-04-04] MEDS: oxyCODONE/APAP 5/325 1 TAB TABLET PO PRN (09:03)
[2022-04-04] MEDS: HEPARIN for SUB-Q USE 5,000 UNIT/ML VIAL. SQ SCH ×2 (09:10→21:15)
[2022-04-04] MEDS: ONDANSETRON PF 4 MG/2 ML VIAL. IVP PRN (10:21)
[2022-04-04 11:00] VITALS: BP 149/108
[2022-04-04] MEDS: INSULIN GLARGINE SYRINGE. SQ SCH (14:39)
[2022-04-04 15:00] VITALS: BP 116/58
[2022-04-04] MEDS: fentaNYL PF VIAL 100 MCG/2 ML VIAL IVP PRN ×2 (15:08→21:06)
[2022-04-04 19:00] VITALS: BP 147/71
--- NOTE | 2022-04-04 19:49 | PDOC ---
[employer] PROGRESS NOTE Date of Service DOS: DATE: 04/04/22 TIME: 19:47 Chief Complaint Chief Complaint Syncope and acute blood loss during dialysis, dizziness, anemia likely 2/2 esrd. ESRD Tuesday HD. History diabetes hypertension -Undergoing dialysis 04/02 somehow during dialysis needle/line popped out and patient had acute blood loss -Brought here. Hemoglobin only one-point down from recent in December. C ontinue to monitor -Bleeding controlled no signs of further blood loss. Okay to resume home antithrombotics aspirin Plavix -Positive orthostatics. -We will hold off home clonidine hydralazine for now with normal blood pressure and orthostatics -Will resume other home BP meds -Nephrology consult to see if dialysis session needed -home insulin resumed --> add morning dose and move lantus to afternoon perpatient request -DVT ppx -normal cardiac workup thus far History of Present Illness History of Present Illness 04/04 Patient evaluated examined at bedside. Resting in bed still complaining of ongoing dizziness even with laying down still says room was spinning. Recheck orthostatics today. Consult to cardiology. Nephrology recommendations reviewed. PT OT. Discussed with bedside RN 04/03 Patient evaluated examined at bedside. He was sitting on bedside commode. Said he was still having ongoing dizziness feels like the room spinning even when sitting down; also with some bilateral lower extremity pain. Continue work-up no apparent cause right now. PT OT ordered. Nephrology consult given ESRD status. Follows with cardiology at the [place]; has a pacer in place for history of bradycardia. If remains dizzy throughout today we will likely plan for cards consult tomorrow for further assistance. discussed with bedside RN Vitals/I&O Vitals/I&O: Vital Signs Date Time Temp Pulse Resp B/P (MAP) Pulse Ox O2 Delivery O2 Flow Rate FiO2 04/04/22 17:39 99 Room Air 04/04/22 15:00 98.3 64 20 116/58 (77) 98.3 I & O 04/03/22 04/03/22 04/04/22 15:00 23:00 07:00 Intake Total 400 ml 200 ml Balance 400 ml 200 ml Physical Exam General: Alert, Oriented X3, Cooperative Heart: Regular rate, Normal S1, Normal S2 Lungs: Clear Abdomen: Normal bowel sounds, Soft, No tenderness Extremities: No edema, Normal pulses Skin: No significant lesion Assessment and Plan Assessmemt and Plan Problems Medical Problems: (1) Dizziness Status: Acute (2) Orthostatic hypotension Status: Acute (3) Syncope Status: Acute Comment Review of Relevant I have reviewed the following items otf (where applicable) has been applied. Justifications for Admission Other Justification KARLEE SCHWAB MD April 04, 2022 19:49
[2022-04-04] MEDS: ATORVASTATIN CALCIUM 20 MG TABLET PO SCH (20:59)
--- NOTE | 2022-04-04 21:18 | NUR ---
HS blood sugar 162 per pt's own device.
[2022-04-04 23:00] VITALS: BP 119/55
[2022-04-05] VITALS (7 sets, daily range): BP systolic 100–159; BP diastolic 43–86
[2022-04-05] MEDS: fentaNYL PF VIAL 100 MCG/2 ML VIAL IVP PRN ×3 (03:48→21:49)
[2022-04-05 07:16] LABS: BASO % 1 % (0-3); EOS # 0.1 x10^3/uL (0.0-0.7); EOS % 2 % (0-3); HEMATOCRIT 23.5 % (39.0-53.0); HEMOGLOBIN 7.7 g/dL (13.0-17.5); LYMPH # 1.2 x10^3/uL (1.0-4.8); LYMPH % 35 % (24-48); MEAN CORPUSCULAR HEMOGLOBIN 32 pg (25-35); MEAN CORPUSCULAR HGB CONC 33 g/dL (31-37); MEAN CORPUSCULAR VOLUME 98 fL (79-100); MONO # 0.3 x10^3/uL (0.0-1.1); MONO % 10 % (0-9); NEUT # 1.7 x10^3/uL (1.8-7.7); NEUT % 52 % (31-73); PLATELET COUNT 116 x10^3/uL (140-400); RED CELL DISTRIBUTION WIDTH 14.7 % (11.5-14.5); WHITE BLOOD COUNT 3.4 x10^3/uL (4.0-11.0)
[2022-04-05 07:17] LABS: CALCIUM 8.1 mg/dL (8.5-10.1); CREATININE 9.7 mg/dL (0.7-1.3); GFR 6.7
[2022-04-05 07:19] LABS: POTASSIUM 6.5 mmol/L (3.5-5.1)
--- NOTE | 2022-04-05 07:48 | PDOC ---
[employer] PROGRESS NOTE Date of Service DOS: DATE: 04/05/22 TIME: 07:48 Chief Complaint Chief Complaint Syncope Acute blood loss anemia Dizziness ESRD Tuesday - RUE fistula Diabetes Hypertension SSS s/p PPM - follows at [facility] FEN - Renal ADA PPX - heparin FULL CODE Dispo - inpatient History of Present Illness History of Present Illness 04/05: WBC 3.4, Hb 7.7, platelets 116, K6.5, CR 9.7. Resting comfortably about acute dialysis this morning. 04/04: Patient evaluated examined at bedside. Resting in bed still complaining of ongoing dizziness even with laying down still says room was spinning. Recheck orthostatics today. Consult to cardiology. Nephrology recommendations reviewed. PT OT. Discussed with bedside RN 04/03 Patient evaluated examined at bedside. He was sitting on bedside commode. Said he was still having ongoing dizziness feels like the room spinning even when s itting down; also with some bilateral lower extremity pain. Continue work-up no apparent cause right now. PT OT ordered. Nephrology consult given ESRD status. Follows with cardiology at the [place]; has a pacer in place for history of bradycardia. If remains dizzy throughout today we will likely plan for cards consult tomorrow for further assistance. discussed with bedside RN Vitals/I&O Vitals/I&O: Vital Signs Date Time Temp Pulse Resp B/P (MAP) Pulse Ox O2 Delivery O2 Flow Rate FiO2 04/05/22 03:00 98.2 81 18 159/86 (110) 95 Room Air 98.2 I & O 04/04/22 04/04/22 04/05/22 15:00 23:00 07:00 Intake Total 480 ml 240 ml Balance 480 ml 240 ml Physical Exam General: Alert, Oriented X3, Cooperative Heart: Regular rate, Normal S1, Normal S2 Lungs: Clear Abdomen: Normal bowel sounds, Soft, No tenderness Extremities: No edema, Normal pulses Skin: No significant lesion Labs Labs: Laboratory Tests Test 04/05/22 06:35 Sodium Level 138 mmol/L (136-145) Potassium Level 6.5 mmol/L (3.5-5.1) Chloride Level 102 mmol/L (98-107) Carbon Dioxide Level 25 mmol/L (21-32) Anion Gap 11 (6-14) Blood Urea Nitrogen 50 mg/dL (8-26) Creatinine 9.7 mg/dL (0.7-1.3) Estimated GFR (Cockcroft-Gault) 6.7 Glucose Level 198 mg/dL (70-99) Calcium Level 8.1 mg/dL (8.5-10.1) Assessment and Plan Assessmemt and Plan Problems Medical Problems: (1) Dizziness Status: Acute (2) Orthostatic hypotension Status: Acute (3) Syncope Status: Acute Comment Review of Relevant I have reviewed the following items otf (where applicable) has been applied. Justifications for Admission Other Justification KARLEE DASH MD April 05, 2022 07:48
[2022-04-05] MEDS: INSULIN LISPRO 300 UNITS/3 ML VIAL. SQ SCH ×6 (08:00→17:25)
[2022-04-05] MEDS ORDERED: IV NORMAL SALINE 1000ML BAG 1,000 ML IV PRN ×2 (08:00)
[2022-04-05] MEDS ORDERED: DIALYSIS PATIENT. MC PRN (08:00)
[2022-04-05] MEDS: LABETALOL HCL 200 MG TABLET PO SCH ×2 (09:00→21:00)
[2022-04-05] MEDS: HEPARIN for SUB-Q USE 5,000 UNIT/ML VIAL. SQ SCH ×2 (09:00→21:43)
[2022-04-05] MEDS: LOSARTAN POTASSIUM 50 MG TABLET. PO SCH (09:00)
[2022-04-05] MEDS: DICLOFENAC SODIUM 1% TOPICAL GEL 100GM TUBE. TP SCH ×2 (09:00→21:00)
--- NOTE | 2022-04-05 10:03 | PDOC ---
DATE OF SERVICE DATE: 04/05/22 TIME: 10:03 SUBJECTIVE ROS States feeling fair. No specific comlaints. Denies SOB, No N/V OBJECTIVE Vital Signs Vital Signs Date Time Temp Pulse Resp B/P (MAP) Pulse Ox O2 Delivery O2 Flow Rate FiO2 04/05/22 07:00 97.7 68 17 115/59 (77) 97 Room Air 97.7 I & 0 Intake and Output 04/05/22 07:00 Intake Total 720 ml Balance 720 ml Intake Oral 720 ml # Voids 2 PHYSICAL EXAM Physical Exam GEN: No apparent distress. HEENT: Normal cephalic, atraumatic, OM moist NECK: Supple, LUNGS: Clear to auscultation Non labored HEART: RRR, S!, S2 present. ABDOMEN: Soft, nontender. Positive bowel sounds, EXTREMITIES: No clubbing, cyanosis, or edema. NEUROLOGIC: Normal speech and tone. A&O x 3, moves all extremities, no obvious focal deficits PSYCHIATRIC: Normal affect, normal mood. Stable SKIN: No rashes, good skin turgor, no jaundice DIAGNOSIS/ASSESSMENT Assessment & Plan ESRD On HD MWF at [facility] under Dr Vera .Seen during dialysis, tolerating well. Continue as ordered. Everardo MARSHALL Acute blood loss anemia; hgb to 7.7- Blood loss in the dialysis unit 2/2 dislodgment of needle. Monitor HyperKalemia- Dialysis today Syncope, orthostatic hypotension. AMI ruled out Hypertension; controlled Diabetes, II Hyperkalemia S/p leadless PPM. [facility]; v-paced with underlying SR COMMENT/RELEVANT DATA Meds Current Medications Medications (Trade) Dose Ordered Sig/Mindy Start Time Stop Time Status Last Admin Dose Admin Acetaminophen (Tylenol) 650 mg PRN Q6HRS PRN 04/02/22 19:30 Amlodipine Besylate (Norvasc) 10 mg DAILY 04/03/22 09:00 04/03/22 08:35 10 MG Aspirin (Ecotrin) 81 mg DAILY 04/03/22 09:00 04/04/22 09:02 81 MG Atorvastatin Calcium (Lipitor) 20 mg HS 04/02/22 21:00 04/04/22 20:59 20 MG Calcium Carbonate/ Glycine (Tums) 500 mg PRN Q3HRS PRN 04/02/22 19:30 Clonidine HCl (Catapres) 0.3 mg TID 04/02/22 21:00 04/02/22 19:29 DC Clopidogrel Bisulfate (Plavix) 75 mg DAILYWBKFT 04/03/22 08:00 04/04/22 09:02 75 MG Dextrose (Dextrose 50%-Water Syringe) 12.5 gm PRN Q15MIN PRN 04/02/22 19:45 04/03/22 14:33 12.5 GM Diclofenac Sodium (Voltaren) 1 tara BID 04/03/22 09:30 04/04/22 21:00 1 TARA Fentanyl Citrate (Fentanyl 2ml Vial) 50 mcg PRN Q4HRS PRN 04/03/22 09:30 04/05/22 03:48 50 MCG Gabapentin (Neurontin) 300 mg QHS 04/05/22 21:00 Heparin Sodium (Porcine) (Heparin Sodium) 5,000 unit Q12HR 04/02/22 21:00 04/04/22 21:15 5,000 UNIT Hydralazine HCl (Apresoline) 100 mg TID 04/02/22 21:00 04/02/22 19:28 DC Info (Non-Icu Electrolyte Protocol) 1 ea PRN DAILY PRN 04/02/22 19:30 Info (PHARMACY MONITORING -- do not chart) 1 each PRN DAILY PRN 04/05/22 08:00 Insulin Glargine (Lantus Syringe) 32 unit DAILY 04/03/22 13:30 04/04/22 14:39 32 UNIT Insulin Human Lispro (HumaLOG) 15 units DAILYWBKFT 04/03/22 09:30 04/03/22 10:21 15 UNITS Labetalol HCl (Trandate) 100 mg BID 04/02/22 21:00 04/04/22 20:59 100 MG Losartan Potassium (Cozaar) 50 mg DAILY 04/03/22 09:00 04/03/22 08:38 50 MG Ondansetron HCl (Zofran) 4 mg PRN Q6HRS PRN 04/02/22 19:30 04/04/22 10:21 4 MG Oxycodone/ Acetaminophen (Percocet 5/325) 2 tab PRN Q4HRS PRN 04/02/22 19:30 04/04/22 09:03 2 TAB Senna/Docusate Sodium (Senna Plus) 1 tab BID 04/02/22 21:00 04/03/22 08:38 1 TAB Sodium Chloride 1,000 ml @ 400 mls/hr Q2H30M PRN 04/05/22 08:00 04/05/22 19:59 Trazodone HCl (Desyrel) 50 mg PRN QHS PRN 04/02/22 19:30 04/04/22 21:06 50 MG Vitamin D (Vitamin D3) 1,000 unit DAILY 04/03/22 09:00 04/04/22 09:02 1,000 UNIT Lab Laboratory Tests Test 04/05/22 06:35 04/05/22 08:03 White Blood Count 3.4 x10^3/uL (4.0-11.0) Red Blood Count 2.40 x10^6/uL (4.30-5.70) Hemoglobin 7.7 g/dL (13.0-17.5) Hematocrit 23.5 % (39.0-53.0) Mean Corpuscular Volume 98 fL (79-100) Mean Corpuscular Hemoglobin 32 pg (25-35) Mean Corpuscular Hemoglobin Concent 33 g/dL (31-37) Red Cell Distribution Width 14.7 % (11.5-14.5) Platelet Count 116 x10^3/uL (140-400) Neutrophils (%) (Auto) 52 % (31-73) Lymphocytes (%) (Auto) 35 % (24-48) Monocytes (%) (Auto) 10 % (0-9) Eosinophils (%) (Auto) 2 % (0-3) Basophils (%) (Auto) 1 % (0-3) Neutrophils # (Auto) 1.7 x10^3/uL (1.8-7.7) Lymphocytes # (Auto) 1.2 x10^3/uL (1.0-4.8) Monocytes # (Auto) 0.3 x10^3/uL (0.0-1.1) Eosinophils # (Auto) 0.1 x10^3/uL (0.0-0.7) Basophils # (Auto) 0.0 x10^3/uL (0.0-0.2) Sodium Level 138 mmol/L (136-145) Potassium Level 6.5 mmol/L (3.5-5.1) Chloride Level 102 mmol/L (98-107) Carbon Dioxide Level 25 mmol/L (21-32) Anion Gap 11 (6-14) Blood Urea Nitrogen 50 mg/dL (8-26) Creatinine 9.7 mg/dL (0.7-1.3) Estimated GFR (Cockcroft-Gault) 6.7 Glucose Level 198 mg/dL (70-99) Calcium Level 8.1 mg/dL (8.5-10.1) Glucose (Fingerstick) 185 mg/dL (70-99) Results All relevant outside records, renal labs, imaging studies, telemetry/EKG's were reviewed. Justicifation of Admission Dx: Justifications for Admission: Justification of Admission Dx: N/A GLADYS MARRUFO MD April 05, 2022 10:03
--- NOTE | 2022-04-05 11:38 | PDOC2 ---
MICHELLE CARABALLO MACHINE HOSTLER 04/05/22 1138: CARDIAC CONSULT DATE OF CONSULT Date of Consult DATE: 04/05/22 TIME: 11:34 REASON FOR CONSULT Reason for Consult: orthostatic hypotension REFERRING PHYSICIAN Referring Physician: Dr. Mccarthy SOURCE Source: Chart review, Patient HISTORY OF PRESENT ILLNESS HISTORY OF PRESENT ILLNESS This is a 61 yo male who presented from dialysis secondary to acute blood loss and syncopal episode. Was noted with orthostatic hypotension, which prompted this consult. Patient was receiving HD when needle came out of fistula and patient had significant bleeding. Patient has estimated 400-750cc of blood loss and was unconscious for about 5 minutes per report. He was given 600 mL of normal saline. Patient has complained of dizziness, which occurs with position changes, but can also occur at rest. He denies any chest pain, palpitations, diaphoresis, or nausea/vomiting. PAST MEDICAL HISTORY Cardiovascular: HTN, Hyperlipidemia CENTRAL NERVOUS SYSTEM: Periperal neuropathy GI: GERD Musculoskeletal: Osteoarthritis Renal/: Chronic renal failure (ESRD on HD) Endocrine: Diabetes PAST SURGICAL HISTORY Past Surgical History: Other (PPM, fistula ) FAMILY HISTORY Family History: Diabetes, Hypertension SOCIAL HISTORY Smoke: No ALCOHOL: none Drugs: None ALLERGIES ALLERGIES: Coded Allergies: rosuvastatin (Unverified Allergy, Intermediate, 01/11/22) tramadol (Verified Allergy, Intermediate, 04/02/22) HAS TOLERATED MORPHINE nitroglycerin (Verified Adverse Reaction, Intermediate, Nausea and Vomiting, 01/11/22) ROS Review of System 14 point ROS conducted with pertinent positives noted above in HPI PHYSICAL EXAM General: Alert, Oriented X3, Cooperative, No acute distress HEENT: Atraumatic Lungs: Clear to auscultation Heart: Regular rate (v-paced with underlying SR ) Abdomen: Soft Extremities: No edema Skin: No significant lesion Neuro: Normal speech, Sensation intact Psych/Mental Status: Mental status NL, Mood NL MUSCULOSKELETAL: Osteoarthritic changes both hands VITALS/I&O VITALS/I&O: Vital Signs Date Time Temp Pulse Resp B/P (MAP) Pulse Ox O2 Delivery O2 Flow Rate FiO2 04/05/22 09:00 68 115/59 04/05/22 07:00 97.7 17 97 Room Air 97.7 I & O 04/04/22 04/04/22 04/05/22 14:59 22:59 06:59 Intake Total 480 ml 240 ml Balance 480 ml 240 ml LABS Lab: Laboratory Tests Test 04/05/22 06:35 04/05/22 08:03 White Blood Count 3.4 x10^3/uL (4.0-11.0) L Red Blood Count 2.40 x10^6/uL (4.30-5.70) L Hemoglobin 7.7 g/dL (13.0-17.5) L Hematocrit 23.5 % (39.0-53.0) L Mean Corpuscular Volume 98 fL (79-100) Mean Corpuscular Hemoglobin 32 pg (25-35) Mean Corpuscular Hemoglobin Concent 33 g/dL (31-37) Red Cell Distribution Width 14.7 % (11.5-14.5) H Platelet Count 116 x10^3/uL (140-400) L Neutrophils (%) (Auto) 52 % (31-73) Lymphocytes (%) (Auto) 35 % (24-48) Monocytes (%) (Auto) 10 % (0-9) H Eosinophils (%) (Auto) 2 % (0-3) Basophils (%) (Auto) 1 % (0-3) Neutrophils # (Auto) 1.7 x10^3/uL (1.8-7.7) L Lymphocytes # (Auto) 1.2 x10^3/uL (1.0-4.8) Monocytes # (Auto) 0.3 x10^3/uL (0.0-1.1) Eosinophils # (Auto) 0.1 x10^3/uL (0.0-0.7) Basophils # (Auto) 0.0 x10^3/uL (0.0-0.2) Sodium Level 138 mmol/L (136-145) Potassium Level 6.5 mmol/L (3.5-5.1) *H Chloride Level 102 mmol/L (98-107) Carbon Dioxide Level 25 mmol/L (21-32) Anion Gap 11 (6-14) Blood Urea Nitrogen 50 mg/dL (8-26) H Creatinine 9.7 mg/dL (0.7-1.3) H Estimated GFR (Cockcroft-Gault) 6.7 Glucose Level 198 mg/dL (70-99) H Calcium Level 8.1 mg/dL (8.5-10.1) L Glucose (Fingerstick) 185 mg/dL (70-99) H Laboratory Tests 04/05/22 06:35 Laboratory Tests 04/05/22 06:35 ASSESSMENT/PLAN ASSESSMENT/PLAN 1. Acute blood loss anemia; hgb drift to 7.7 2. Syncope, orthostatic hypotension. AMI ruled out 3. Hypertension; controlled 4. Hyperlipidemia 5. Diabetes, II 6. ESRD on HD 7. Hyperkalemia 8. S/p leadless PPM. Follows with [facility]; v-paced with underlying SR Recommendations Recheck orthos Compression stockings Allow for higher baseline blood pressure due to above Baseline echocardiogram Fluid offloading, electrolyte correction via HD TSH, Lipids Consider discontinuing losartan due to hyperkalemia. will defer to nephrology Monitor hgb and transfuse as warranted Supportive care EDOUARD KRAUS MD 04/05/22 7195: CARDIAC CONSULT ASSESSMENT/PLAN ASSESSMENT/PLAN Patient seen and examined He is feeling comfortable at this time and is alert. I agree with our nurse practitioners assessment and plan. Acute blood loss anemia; hgb drift to 7.7. Monitoring. Transfusion as per the primary and renal services. Syncope, orthostatic hypotension. AMI ruled out. Continuing to monitor. TSH. Echo pending. Hypertension; controlled Hyperlipidemia. Checking lab. Diabetes, II ESRD on HD. As per the renal service. Hyperkalemia S/p leadless PPM. Follows with [facility]; v-paced with underlying SR MICHELLE CARABALLO APRN April 05, 2022 11:38 EDOUARD KRAUS MD April 05, 2022 17:45
--- NOTE | 2022-04-05 13:22 | NUR ---
SS following for discharge planning. SS reviewed pt chart and discussed with pt RN. Pt is from home with family and is currently on room air. Pt has outpatient dialysis at [facility], ; fax [phone]. PT/OT recommended home with home healthcare. SS will continue to follow for discharge planning.
[2022-04-05] MEDS: ASPIRIN ENTERIC COATED 81 MG TABLET.DR. PO SCH (13:28)
[2022-04-05] MEDS: oxyCODONE/APAP 5/325 1 TAB TABLET PO PRN ×2 (13:28→19:53)
[2022-04-05] MEDS: CLOPIDOGREL BISULFATE 75 MG TABLET PO SCH (13:29)
[2022-04-05] MEDS: CHOLECALCIFEROL (VITAMIN D3) 1,000 UNIT TABLET PO SCH (13:29)
[2022-04-05] MEDS: SENNOSIDES/DOCUSATE 8.6/50MG TABLET. PO SCH ×2 (13:29→21:00)
[2022-04-05] MEDS: INSULIN GLARGINE SYRINGE. SQ SCH (13:35)
[2022-04-05 13:54] LABS: CHOLESTEROL/HDL RATIO 2.1
[2022-04-05] MEDS ORDERED: GABAPENTIN 300 MG CAPSULE. PO SCH (21:00)
[2022-04-05] MEDS ORDERED: EPOETIN ALFA 20,000 UNIT/ML VIAL for DIALYSIS PTS. SQ SCH (21:00)
[2022-04-05] MEDS: ATORVASTATIN CALCIUM 20 MG TABLET PO SCH (21:36)
[2022-04-06] MEDS: fentaNYL PF VIAL 100 MCG/2 ML VIAL IVP PRN (05:20)
[2022-04-06 06:12] VITALS: BP 150/50
[2022-04-06 06:52] LABS: HEMATOCRIT 23.8 % (39.0-53.0); HEMOGLOBIN 7.9 g/dL (13.0-17.5); RED BLOOD COUNT 2.43 x10^6/uL (4.30-5.70); RED CELL DISTRIBUTION WIDTH 14.6 % (11.5-14.5); WHITE BLOOD COUNT 3.9 x10^3/uL (4.0-11.0)
[2022-04-06 06:53] LABS: ALBUMIN 2.7 g/dL (3.4-5.0); CALCIUM 8.2 mg/dL (8.5-10.1); CREATININE 6.1 mg/dL (0.7-1.3); GFR 11.4; POTASSIUM 5.5 mmol/L (3.5-5.1)
[2022-04-06 07:00] VITALS: BP 145/62
--- NOTE | 2022-04-06 07:04 | PDOC ---
[employer] PROGRESS NOTE Date of Service DOS: DATE: 04/06/22 TIME: 07:02 Chief Complaint Chief Complaint Syncope Acute blood loss anemia Hyperkalemia Dizziness ESRD Tuesday - RUE fistula Diabetes Hypertension SSS s/p PPM - follows at [facility] FEN - Renal ADA PPX - heparin FULL CODE Dispo - inpatient History of Present Illness History of Present Illness Mr Aviles is a 61yo male with PMHx diabetes mellitus, hypertension, hyperlipidemia, anemia of chronic kidney disease, secondary hyperparathyroidism, ESRD on HD on MWF who came to ED after his vascular access needle became dislodged and he had blood loss. He had subsequent syncopal episode and dizziness and as such was brought to the hospital for further evaluation and management. 04/03: Patient evaluated examined at bedside. He was sitting on bedside commode. Said he was still having ongoing dizziness feels like the room spinning even when sitting down; also with some bilateral lower extremity pain. Continue work-up no apparent cause right now. PT OT ordered. Nephrology consult given ESRD status. Follows with cardiology at the [facility]; has a pacer in place for history of bradycardia. If remains dizzy throughout today we will likely plan for cards consult tomorrow for further assistance. discussed with bedside RN 04/04: Patient evaluated examined at bedside. Resting in bed still complaining of ongoing dizziness even with laying down still says room was spinning. Recheck orthostatics today. Consult to cardiology. Nephrology recommendations reviewed. PT OT. Discussed with bedside RN 04/05: WBC 3.4, Hb 7.7, platelets 116, K6.5, CR 9.7. Resting comfortably about acute dialysis this morning. 04/06: Hb 7.9, K down to 5.5. No further dizziness. He did work with therapy he still worried he might have vertigo. Kayexalate ordered for this morning otherwise discussed with him and daughter he can have home health. Vitals/I&O Vitals/I&O: Vital Signs Date Time Temp Pulse Resp B/P (MAP) Pulse Ox O2 Delivery O2 Flow Rate FiO2 04/06/22 06:12 98.3 53 16 150/50 (83) 96 Room Air 98.3 I & O 04/05/22 04/05/22 04/06/22 15:00 23:00 07:00 Intake Total 300 ml 500 ml 0 ml Balance 300 ml 500 ml 0 ml Physical Exam General: Alert, Oriented X3, Cooperative, No acute distress Heart: Regular rate (v-paced with underlying SR ) Lungs: Clear Abdomen: Soft Extremities: No edema Skin: No significant lesion Labs Labs: Laboratory Tests Test 04/05/22 08:03 04/06/22 06:04 04/06/22 06:05 Glucose (Fingerstick) 185 mg/dL (70-99) 115 mg/dL (70-99) Sodium Level 141 mmol/L (136-145) Potassium Level 5.5 mmol/L (3.5-5.1) Chloride Level 105 mmol/L (98-107) Carbon Dioxide Level 29 mmol/L (21-32) Anion Gap 7 (6-14) Blood Urea Nitrogen 27 mg/dL (8-26) Creatinine 6.1 mg/dL (0.7-1.3) Estimated GFR (Cockcroft-Gault) 11.4 Glucose Level 105 mg/dL (70-99) Calcium Level 8.2 mg/dL (8.5-10.1) Phosphorus Level 5.0 mg/dL (2.6-4.7) Albumin 2.7 g/dL (3.4-5.0) Assessment and Plan Assessmemt and Plan Problems Medical Problems: (1) Dizziness Status: Acute (2) Orthostatic hypotension Status: Acute (3) Syncope Status: Acute Comment Review of Relevant I have reviewed the following items otf (where applicable) has been applied. Medications: Current Medications Medications (Trade) Dose Ordered Sig/Mindy Route PRN Reason Start Time Stop Time Status Last Admin Dose Admin Gabapentin (Neurontin) 300 mg QHS PO 04/05/22 21:00 04/05/22 21:37 Epoetin Dm (PROCRIT for DIALYSIS PTS) 10,000 unit 3X/WEEK@2100 SQ 04/05/22 21:00 04/05/22 21:44 Justifications for Admission Other Justification KARLEE DASH MD April 06, 2022 07:04
[2022-04-06] MEDS ORDERED: SODIUM POLYSTYRENE SULFON/SORB 15 GM/60 ML ORAL.SUSP. PO ONE (07:45)
[2022-04-06] MEDS: INSULIN LISPRO 300 UNITS/3 ML VIAL. SQ SCH ×3 (08:00→12:09)
[2022-04-06] MEDS: CHOLECALCIFEROL (VITAMIN D3) 1,000 UNIT TABLET PO SCH (08:16)
[2022-04-06] MEDS: ASPIRIN ENTERIC COATED 81 MG TABLET.DR. PO SCH (08:17)
[2022-04-06] MEDS: SENNOSIDES/DOCUSATE 8.6/50MG TABLET. PO SCH (08:17)
[2022-04-06] MEDS: DICLOFENAC SODIUM 1% TOPICAL GEL 100GM TUBE. TP SCH (08:19)
[2022-04-06] MEDS: CLOPIDOGREL BISULFATE 75 MG TABLET PO SCH (08:23)
[2022-04-06] MEDS: HEPARIN for SUB-Q USE 5,000 UNIT/ML VIAL. SQ SCH (08:37)
[2022-04-06] MEDS: LABETALOL HCL 200 MG TABLET PO SCH (09:00)
--- NOTE | 2022-04-06 09:31 | PDOC ---
DATE OF SERVICE DATE: 04/06/22 TIME: 09:31 SUBJECTIVE ROS No complaints. Denies SOB, No N/V OBJECTIVE Vital Signs Vital Signs Date Time Temp Pulse Resp B/P (MAP) Pulse Ox O2 Delivery O2 Flow Rate FiO2 04/06/22 08:23 58 145/62 04/06/22 07:00 97.8 16 94 Room Air 97.8 I & 0 Intake and Output 04/06/22 07:00 Intake Total 800 ml Balance 800 ml Intake Oral 800 ml # Bowel Movements 2 PHYSICAL EXAM Physical Exam GEN: No apparent distress. HEENT: Normal cephalic, atraumatic, OM moist NECK: Supple, LUNGS: Clear to auscultation Non labored HEART: RRR, S!, S2 present. ABDOMEN: Soft, nontender. Positive bowel sounds, EXTREMITIES: No clubbing, cyanosis, or edema. NEUROLOGIC: Normal speech and tone. A&O x 3, moves all extremities, no obvious focal deficits PSYCHIATRIC: Normal affect, normal mood. Stable SKIN: No rashes, good skin turgor, no jaundice DIAGNOSIS/ASSESSMENT Assessment & Plan ESRD On HD MWF at [facility] under Dr Vera .No indication for dialysis today . If Dced will resume dialysis as OP tomorrow Acute blood loss anemia; hgb to 7.7- Blood loss in the dialysis unit 2/2 dislodgment of needle. Monitor HyperKalemia- Dialyzed yesterday. Mild elevated K today , Recd Kayexalate . No emjergent indication for dialysis currently Syncope, orthostatic hypotension. AMI ruled out Hypertension; controlled Diabetes, II Hyperkalemia S/p leadless PPM. [facility]; v-paced with underlying SR COMMENT/RELEVANT DATA Meds Current Medications Medications (Trade) Dose Ordered Sig/Mindy Start Time Stop Time Status Last Admin Dose Admin Acetaminophen (Tylenol) 650 mg PRN Q6HRS PRN 04/02/22 19:30 Amlodipine Besylate (Norvasc) 10 mg DAILY 04/03/22 09:00 04/06/22 08:23 10 MG Aspirin (Ecotrin) 81 mg DAILY 04/03/22 09:00 04/06/22 08:17 81 MG Atorvastatin Calcium (Lipitor) 20 mg HS 04/02/22 21:00 04/05/22 21:36 20 MG Calcium Carbonate/ Glycine (Tums) 500 mg PRN Q3HRS PRN 04/02/22 19:30 Clonidine HCl (Catapres) 0.3 mg TID 04/02/22 21:00 04/02/22 19:29 DC Clopidogrel Bisulfate (Plavix) 75 mg DAILYWBKFT 04/03/22 08:00 04/06/22 08:23 75 MG Dextrose (Dextrose 50%-Water Syringe) 12.5 gm PRN Q15MIN PRN 04/02/22 19:45 04/03/22 14:33 12.5 GM Diclofenac Sodium (Voltaren) 1 tara BID 04/03/22 09:30 04/06/22 08:19 1 TARA Epoetin Dm (PROCRIT for DIALYSIS PTS) 10,000 unit 3X/WEEK@2100 04/05/22 21:00 04/05/22 21:44 10,000 UNIT Fentanyl Citrate (Fentanyl 2ml Vial) 50 mcg PRN Q4HRS PRN 04/03/22 09:30 04/06/22 05:20 50 MCG Gabapentin (Neurontin) 300 mg QHS 04/05/22 21:00 04/05/22 21:37 300 MG Heparin Sodium (Porcine) (Heparin Sodium) 5,000 unit Q12HR 04/02/22 21:00 04/06/22 08:37 5,000 UNIT Hydralazine HCl (Apresoline) 100 mg TID 04/02/22 21:00 04/02/22 19:28 DC Info (Non-Icu Electrolyte Protocol) 1 ea PRN DAILY PRN 04/02/22 19:30 Info (PHARMACY MONITORING -- do not chart) 1 each PRN DAILY PRN 04/05/22 08:00 Insulin Glargine (Lantus Syringe) 32 unit DAILY 04/03/22 13:30 04/05/22 13:35 32 UNIT Insulin Human Lispro (HumaLOG) 15 units DAILYWBKFT 04/03/22 09:30 04/03/22 10:21 15 UNITS Labetalol HCl (Trandate) 100 mg BID 04/02/22 21:00 04/04/22 20:59 100 MG Losartan Potassium (Cozaar) 50 mg DAILY 04/03/22 09:00 04/06/22 07:41 DC 04/03/22 08:38 50 MG Ondansetron HCl (Zofran) 4 mg PRN Q6HRS PRN 04/02/22 19:30 04/04/22 10:21 4 MG Oxycodone/ Acetaminophen (Percocet 5325) 2 tab PRN Q4HRS PRN 04/02/22 19:30 04/05/22 19:53 2 TAB Senna/Docusate Sodium (Senna Plus) 1 tab BID 04/02/22 21:00 04/06/22 08:17 1 TAB Sodium Polystyrene Sulfonate (Kayexalate) 15 gm 1X ONCE 04/06/22 07:45 04/06/22 07:46 DC 04/06/22 08:19 15 GM Sodium Chloride 1,000 ml @ 400 mls/hr Q2H30M PRN 04/05/22 08:00 04/05/22 19:59 DC Trazodone HCl (Desyrel) 50 mg PRN QHS PRN 04/02/22 19:30 04/04/22 21:06 50 MG Vitamin D (Vitamin D3) 1,000 unit DAILY 04/03/22 09:00 04/06/22 08:16 1,000 UNIT Lab Laboratory Tests Test 04/06/22 06:04 04/06/22 06:05 04/06/22 07:19 Glucose (Fingerstick) 115 mg/dL (70-99) 101 mg/dL (70-99) White Blood Count 3.9 x10^3/uL (4.0-11.0) Red Blood Count 2.43 x10^6/uL (4.30-5.70) Hemoglobin 7.9 g/dL (13.0-17.5) Hematocrit 23.8 % (39.0-53.0) Mean Corpuscular Volume 98 fL (79-100) Mean Corpuscular Hemoglobin 32 pg (25-35) Mean Corpuscular Hemoglobin Concent 33 g/dL (31-37) Red Cell Distribution Width 14.6 % (11.5-14.5) Platelet Count 117 x10^3/uL (140-400) Sodium Level 141 mmol/L (136-145) Potassium Level 5.5 mmol/L (3.5-5.1) Chloride Level 105 mmol/L (98-107) Carbon Dioxide Level 29 mmol/L (21-32) Anion Gap 7 (6-14) Blood Urea Nitrogen 27 mg/dL (8-26) Creatinine 6.1 mg/dL (0.7-1.3) Estimated GFR (Cockcroft-Gault) 11.4 Glucose Level 105 mg/dL (70-99) Calcium Level 8.2 mg/dL (8.5-10.1) Phosphorus Level 5.0 mg/dL (2.6-4.7) Albumin 2.7 g/dL (3.4-5.0) Results All relevant outside records, renal labs, imaging studies, telemetry/EKG's were reviewed. Justicifation of Admission Dx: Justifications for Admission: Justification of Admission Dx: N/A GLADYS MARRUFO MD April 06, 2022 09:31
--- NOTE | 2022-04-06 09:36 | PDOC ---
CARDIO Progress Notes Date and Time Date of Service 04/06/22 Time of Evaluation 0997 Subjective Subjective: No Chest Pain, No shortness of breath, No Palpitations Vitals Vitals Vital Signs Date Time Temp Pulse Resp B/P (MAP) Pulse Ox O2 Delivery O2 Flow Rate FiO2 04/06/22 08:23 58 145/62 04/06/22 07:00 97.8 16 94 Room Air 97.8 Weight Weight [ ] Input and Output Intake and Output Intake and Output 04/06/22 06:59 Intake Total 800 ml Balance 800 ml Intake Oral 800 ml # Bowel Movements 2 Laboratory Labs Laboratory Tests Test 04/06/22 06:04 04/06/22 06:05 04/06/22 07:19 Glucose (Fingerstick) 115 mg/dL (70-99) 101 mg/dL (70-99) White Blood Count 3.9 x10^3/uL (4.0-11.0) Red Blood Count 2.43 x10^6/uL (4.30-5.70) Hemoglobin 7.9 g/dL (13.0-17.5) Hematocrit 23.8 % (39.0-53.0) Mean Corpuscular Volume 98 fL (79-100) Mean Corpuscular Hemoglobin 32 pg (25-35) Mean Corpuscular Hemoglobin Concent 33 g/dL (31-37) Red Cell Distribution Width 14.6 % (11.5-14.5) Platelet Count 117 x10^3/uL (140-400) Sodium Level 141 mmol/L (136-145) Potassium Level 5.5 mmol/L (3.5-5.1) Chloride Level 105 mmol/L (98-107) Carbon Dioxide Level 29 mmol/L (21-32) Anion Gap 7 (6-14) Blood Urea Nitrogen 27 mg/dL (8-26) Creatinine 6.1 mg/dL (0.7-1.3) Estimated GFR (Cockcroft-Gault) 11.4 Glucose Level 105 mg/dL (70-99) Calcium Level 8.2 mg/dL (8.5-10.1) Phosphorus Level 5.0 mg/dL (2.6-4.7) Albumin 2.7 g/dL (3.4-5.0) Physical Exam HEENT: Neck Supple W Full Motion Chest: Symmetric LUNGS: Clear to Auscultation Heart: RRR (v-paced ), other (3/6 systolic murmur) Abdomen: Soft N/T Extremities: No Edema Neurology: alert, oriented, follow commands Assessment Assessment 1. Acute blood loss anemia; hgb stable 2. Syncope, orthostatic hypotension. AMI ruled out 3. Hypertension; controlled 4. Hyperlipidemia 5. Diabetes, II 6. ESRD on HD 7. Hyperkalemia; losartan discontinued 8. S/p leadless PPM. [facility]; v-paced with underlying SR Recommendations Compression stockings Allow for higher baseline blood pressure due to above Echocardiogram pending Fluid offloading, electrolyte correction via HD Monitor hgb and transfuse as warranted Supportive care Justicifation of Admission Dx: Justifications for Admission: Justification of Admission Dx: N/A MICHELLE CARABALLO APRN April 06, 2022 09:36
[2022-04-06 11:00] VITALS: BP 112/47
--- NOTE | 2022-04-06 11:28 | SNU/HH DC ---
DISCHARGE WITH HOME HEALTH DISCHARGE INFORMATION: Discharge Date: April 06, 2022 Final Diagnosis: Problems Medical Problems: (1) Dizziness Status: Acute (2) Orthostatic hypotension Status: Acute (3) Syncope Status: Acute Condition on Discharge: Stable CODE STATUS: Code Status: Full HOME HEALTH: Face to Face: I certify this patient is under my care and that I, or a nurse practitioner or physician's engineer second assistant working with me, had a face to face encounter that meets the physician face to face encounter requirements with this patient on 04/06/2022. Medical Complications: CHF, DM, HTN Fci For: Assess Cardiopulm Status, Assess & Educate Safety, Diabetic Care, Medication Management RN For Eval/Treatment: Yes Physical Therapy For: Evalulation/Treatment Occupational Therapy For: Evaluation/Treatment Pt Meets Homebound Status: Fatigue w/ amb. POST DISCHARGE ORDERS: Activity Instructions for Disc: Activity as tolerated Weight Bearing Status after Di: Full weight bearing DIET AFTER DISCHARGE: Renal Wound/Incision Care: Keep wound/cast CDI CHECKS AFTER DISCHARGE: Checks after discharge: Check blood press - daily, Check blood sugar, ac/hs FOLLOW-UP: Additional Instructions: [facility] Doctors: Dorie [address] [place] [address], [address] [place] [address] TREATMENT/EQUIPMENT ORDERS: Adaptive Equipment Issued: None CERTIFICATION STATEMENT: Certification Statement: Certification Statement: Based on the above finding, I certify that this patient is confined to the home and needs intermittent fpc care, physical therapy and/or speech therapy, or continues to need occupational therapy.~ This patient is under my care, and I have initiated the establishment of the plan of care.~ This patient will be followed by myself or a community physician who will periodically review the plan of care. Home Meds Active Scripts Clopidogrel Bisulfate (PLAVIX) 75 Mg Tablet, 75 MG PO DAILYWBKFT, #10 0 Refills Prov:TATI DAN MD 08/03/14 Reported Medications Insulin Regular, Human (NOVOLIN R) 100 Unit/1 Ml Vial, IJ TIDWMEALS for blood glucose SLIDING SCALE ON, EACH 04/03/22 Insulin Glargine,Hum.rec.anlog (LANTUS SOLOSTAR) 100 Unit/1 Ml Insuln.pen, 15 UNIT SQ QHS for blood glucose, #15 ML 3 Refills 04/03/22 Aspirin (ASPIR 81) 81 Mg Tablet.dr, 81 MG PO DAILY, TAB 07/26/14 Trazodone Hcl (TRAZODONE HCL) 50 Mg Tablet, 50 MG PO PRN QHS PRN for INSOMNIA, TAB 07/26/14 Sennosides (SENOKOT) 8.6 Mg Tablet, 8.6 MG PO PRN DAILY PRN for CONSTIPATION 07/26/14 Cholecalciferol (Vitamin D3) (VITAMIN D3) 1,000 Unit Tablet, 1000 UNIT PO DAILY 07/26/14 Atorvastatin Calcium (ATORVASTATIN CALCIUM) 20 Mg Tablet, 20 MG PO HS for FOR CHOLESTEROL, #30 TAB 0 Refills 07/26/14 Amlodipine Besylate (AMLODIPINE BESYLATE) 10 Mg Tablet, 10 MG PO DAILY, TAB 07/26/14 Discontinued Reported Medications Clonidine Hcl (CLONIDINE HCL) 0.3 Mg Tablet, 0.3 MG PO TID, TAB 07/26/14 Hydralazine Hcl (HYDRALAZINE HCL) 100 Mg Tablet, 1 TAB PO TID, #90 TAB 3 Refills 07/26/14 Acetaminophen With Codeine (TYLENOL WITH CODEINE #3 TABLET) 1 Each Tablet, 1 TAB PO Q6HRS, #30 TAB 07/26/14 Discontinued Scripts [Bumetanide] 1 MG TABLET No Conflict Check, 2 MG PO BID92, #60 2 Refills Prov:TATI DAN MD 08/03/14 Metolazone (ZAROXOLYN) 5 Mg Tablet, 5 MG PO TID, #90 5 Refills Prov:TATI DAN MD 08/03/14 Losartan Potassium (COZAAR ) 50 Mg Tablet, 50 MG PO DAILY, #30 5 Refills Prov:TATI DAN MD 08/03/14 Labetalol Hcl (TRANDATE) 200 Mg Tablet, 100 MG PO BID, #60 5 Refills Prov:TATI DAN MD 08/03/14 [Hydralazine Hcl] 50 MG TABLET No Conflict Check, 100 MG PO TID, #90 5 Refills Prov:TATI DAN MD 08/03/14 KARLEE DASH MD April 06, 2022 11:28
--- NOTE | 2022-04-06 14:56 | PDOC3 ---
Discharge Summary Visit Information Date of Admission: April 02, 2022 Date of Discharge: April 06, 2022 Admitting Diagnosis: Syncope Final Diagnosis Problems Medical Problems: (1) Dizziness Status: Acute (2) Orthostatic hypotension Status: Acute (3) Syncope Status: Acute Brief Hospital Course Allergies Allergies Coded Allergies Type Severity Reaction Last Updated Verified rosuvastatin Allergy Intermediate 01/11/22 No tramadol Allergy Intermediate 04/02/22 Yes nitroglycerin Adverse Reaction Intermediate Nausea and Vomiting 01/11/22 Yes Vital Signs Vital Signs Date Time Temp Pulse Resp B/P (MAP) Pulse Ox O2 Delivery O2 Flow Rate FiO2 04/06/22 11:00 98.1 73 18 112/47 (68) 94 Room Air 98.1 Lab Results Laboratory Tests Test 04/05/22 06:35 04/05/22 08:03 04/06/22 06:04 04/06/22 06:05 White Blood Count 3.4 x10^3/uL (4.0-11.0) 3.9 x10^3/uL (4.0-11.0) Red Blood Count 2.40 x10^6/uL (4.30-5.70) 2.43 x10^6/uL (4.30-5.70) Hemoglobin 7.7 g/dL (13.0-17.5) 7.9 g/dL (13.0-17.5) Hematocrit 23.5 % (39.0-53.0) 23.8 % (39.0-53.0) Mean Corpuscular Volume 98 fL (79-100) 98 fL (79-100) Mean Corpuscular Hemoglobin 32 pg (25-35) 32 pg (25-35) Mean Corpuscular Hemoglobin Concent 33 g/dL (31-37) 33 g/dL (31-37) Red Cell Distribution Width 14.7 % (11.5-14.5) 14.6 % (11.5-14.5) Platelet Count 116 x10^3/uL (140-400) 117 x10^3/uL (140-400) Neutrophils (%) (Auto) 52 % (31-73) Lymphocytes (%) (Auto) 35 % (24-48) Monocytes (%) (Auto) 10 % (0-9) Eosinophils (%) (Auto) 2 % (0-3) Basophils (%) (Auto) 1 % (0-3) Neutrophils # (Auto) 1.7 x10^3/uL (1.8-7.7) Lymphocytes # (Auto) 1.2 x10^3/uL (1.0-4.8) Monocytes # (Auto) 0.3 x10^3/uL (0.0-1.1) Eosinophils # (Auto) 0.1 x10^3/uL (0.0-0.7) Basophils # (Auto) 0.0 x10^3/uL (0.0-0.2) Sodium Level 138 mmol/L (136-145) 141 mmol/L (136-145) Potassium Level 6.5 mmol/L (3.5-5.1) 5.5 mmol/L (3.5-5.1) Chloride Level 102 mmol/L (98-107) 105 mmol/L (98-107) Carbon Dioxide Level 25 mmol/L (21-32) 29 mmol/L (21-32) Anion Gap 11 (6-14) 7 (6-14) Blood Urea Nitrogen 50 mg/dL (8-26) 27 mg/dL (8-26) Creatinine 9.7 mg/dL (0.7-1.3) 6.1 mg/dL (0.7-1.3) Estimated GFR (Cockcroft-Gault) 6.7 11.4 Glucose Level 198 mg/dL (70-99) 105 mg/dL (70-99) Calcium Level 8.1 mg/dL (8.5-10.1) 8.2 mg/dL (8.5-10.1) Triglycerides Level 68 mg/dL (0-150) Cholesterol Level 109 mg/dL (0-200) LDL Cholesterol, Calculated 44 mg/dL (0-100) VLDL Cholesterol, Calculated 14 mg/dL (0-40) Non-HDL Cholesterol Calculated 58 mg/dL (0-129) HDL Cholesterol 51 mg/dL (40-60) Cholesterol/HDL Ratio 2.1 Thyroid Stimulating Hormone (TSH) 1.979 uIU/mL (0.358-3.74) Glucose (Fingerstick) 185 mg/dL (70-99) 115 mg/dL (70-99) Phosphorus Level 5.0 mg/dL (2.6-4.7) Albumin 2.7 g/dL (3.4-5.0) Test 04/06/22 07:19 04/06/22 11:24 Glucose (Fingerstick) 101 mg/dL (70-99) 263 mg/dL (70-99) Laboratory Tests Test 04/06/22 06:04 04/06/22 06:05 04/06/22 07:19 04/06/22 11:24 Glucose (Fingerstick) 115 mg/dL (70-99) 101 mg/dL (70-99) 263 mg/dL (70-99) White Blood Count 3.9 x10^3/uL (4.0-11.0) Red Blood Count 2.43 x10^6/uL (4.30-5.70) Hemoglobin 7.9 g/dL (13.0-17.5) Hematocrit 23.8 % (39.0-53.0) Mean Corpuscular Volume 98 fL (79-100) Mean Corpuscular Hemoglobin 32 pg (25-35) Mean Corpuscular Hemoglobin Concent 33 g/dL (31-37) Red Cell Distribution Width 14.6 % (11.5-14.5) Platelet Count 117 x10^3/uL (140-400) Sodium Level 141 mmol/L (136-145) Potassium Level 5.5 mmol/L (3.5-5.1) Chloride Level 105 mmol/L (98-107) Carbon Dioxide Level 29 mmol/L (21-32) Anion Gap 7 (6-14) Blood Urea Nitrogen 27 mg/dL (8-26) Creatinine 6.1 mg/dL (0.7-1.3) Estimated GFR (Cockcroft-Gault) 11.4 Glucose Level 105 mg/dL (70-99) Calcium Level 8.2 mg/dL (8.5-10.1) Phosphorus Level 5.0 mg/dL (2.6-4.7) Albumin 2.7 g/dL (3.4-5.0) Brief Hospital Course Mr Aviles is a 61yo male with PMHx diabetes mellitus, hypertension, hyperlipidemia, anemia of chronic kidney disease, secondary hyperparathyroidism, ESRD on HD on MWF who came to ED after his vascular access needle became dislodged and he had blood loss. He had subsequent syncopal episode and dizziness and as such was brought to the hospital for further evaluation and management. 04/03: Patient evaluated examined at bedside. He was sitting on bedside commode. Said he was still having ongoing dizziness feels like the room spinning even when sitting down; also with some bilateral lower extremity pain. Continue work-up no apparent cause right now. PT OT ordered. Nephrology consult given ESRD status. Follows with cardiology at the [facility]; has a pacer in place for history of bradycardia. If remains dizzy throughout today we will likely plan for cards consult tomorrow for further assistance. discussed with bedside RN 04/04: Patient evaluated examined at bedside. Resting in bed still complaining of ongoing dizziness even with laying down still says room was spinning. Recheck orthostatics today. Consult to cardiology. Nephrology recommendations reviewed. PT OT. Discussed with bedside RN 04/05: WBC 3.4, Hb 7.7, platelets 116, K6.5, CR 9.7. Resting comfortably about acute dialysis this morning. 04/06: Hb 7.9, K down to 5.5. No further dizziness. He did work with therapy he still worried he might have vertigo. Kayexalate ordered for this morning otherwise discussed with him and daughter he can have home health. Consults: Cardiology, Nephrology Problem list: Syncope -vasovagal due to blood loss at dialysis. Also notably was bradycardic held labetalol multiplications recommend to stop this outpatient continue just amlodipine monitor for orthostasis outpatient with home health Acute blood loss anemia -did not require transfusion. Will need outpatient monitoring Hyperkalemia -stop losartan. Low K diet emphasized Dizziness -likely due to acute blood loss and orthostasis improved. ESRD Tuesday - RUE fistula Diabetes -low sliding scale and basal insulin. Would not schedule insulin given some hypoglycemic episodes Hypertension -moving toward lower blood pressures cut back to just amlodipine we will continue to monitor SSS s/p PPM - follows at [facility] Greater than 30 minutes spent on discharge home with home health Discharge Information Condition at Discharge: Improved Follow Up: Weeks (1) Disposition/Orders: D/C to Home w/ HH Scheduled Amlodipine Besylate (Amlodipine Besylate) 10 Mg Tablet, 10 MG PO DAILY, (Reported) Entered as Reported by: MARRY SIMMONS on 07/26/14217 Last Action: Continued on 04/02/221917 by KARLEE SCHWAB MD Aspirin (Aspir 81) 81 Mg Tablet.dr, 81 MG PO DAILY, (Reported) Entered as Reported by: MARRY SIMMONS on 07/26/14217 Last Action: Continued on 04/02/221917 by KARLEE SCHWAB MD Atorvastatin Calcium (Atorvastatin Calcium) 20 Mg Tablet, 20 MG PO HS for FOR CHOLESTEROL, #30 Ref 0 (Reported) Entered as Reported by: MARRY SIMMONS on 07/26/14217 Last Action: Continued on 04/02/221917 by KARLEE SCHWAB MD Cholecalciferol (Vitamin D3) (Vitamin D3) 1,000 Unit Tablet, 1,000 UNIT PO DA RICARDO, (Reported) Entered as Reported by: MARRY SIMMONS on 07/26/14217 Last Action: Continued on 04/02/221917 by KARLEE SCHWAB MD Clopidogrel Bisulfate (Plavix) 75 Mg Tablet, 75 MG PO DAILYWBKFT, #10 Ref 0 Prescribed by: TATI DAN on 08/03/14 1246 Last Action: Continued on 04/02/221917 by KARLEE SCHWAB MD Insulin Glargine,Hum.rec.anlog (Lantus Solostar) 100 Unit/1 Ml Insuln.pen, 15 UNIT SQ QHS for blood glucose, #15 Ref 3 (Reported) Entered as Reported by: VIJAYA NELSON on 04/03/22609 Last Action: Reviewed on 04/03/22609 by VIJAYA NELSON Insulin Regular, Human (Novolin R) 100 Unit/1 Ml Vial, Unknown Dose IJ TIDWMEALS for blood glucose SLIDING SCALE ON, (Reported) Entered as Reported by: VIJAYA NELSON on 04/03/22611 Last Taken: UNKNOWN on Unknown Date & Time Last Action: Reviewed on 04/03/22611 by VIJAYA NELSON Scheduled PRN Sennosides (Senokot) 8.6 Mg Tablet, 8.6 MG PO PRN DAILY PRN for CONSTIPATION, (Reported) Entered as Reported by: MARRY SIMMONS on 07/26/14217 Last Action: HELD on 04/02/221917 by KARLEE SCHWAB MD Trazodone Hcl (Trazodone Hcl) 50 Mg Tablet, 50 MG PO PRN QHS PRN for INSOMNIA, (Reported) Entered as Reported by: MARRY SIMMONS on 07/26/14217 Last Action: Continued on 04/02/221917 by KARLEE SCHWAB MD Discontinued Medications Acetaminophen With Codeine (Tylenol With Codeine #3 Tablet) 1 Each Tablet, 1 TAB PO Q6HRS, #30 (Reported) Entered as Reported by: MARRY SIMMONS on 07/26/14217 Last Action: HELD on 04/02/221917 by KARLEE SCHWAB MD Clonidine Hcl (Clonidine Hcl) 0.3 Mg Tablet, 0.3 MG PO TID, (Reported) Entered as Reported by: MARRY SIMMONS on 07/26/14217 Last Action: Continued on 04/02/221917 by KARLEE SCHWAB MD Hydralazine Hcl (Hydralazine Hcl) 100 Mg Tablet, 1 TAB PO TID, #90 Ref 3 (Reported) Entered as Reported by: MARRY SIMMONS on 07/26/14217 Last Action: Converted on 04/02/221917 by KARLEE SCHWAB MD Labetalol Hcl (Trandate) 200 Mg Tablet, 100 MG PO BID, #60 Ref 5 Prescribed by: TATI DAN on 08/03/141245 Last Action: Continued on 04/02/221917 by KARLEE SCHWAB MD Losartan Potassium (Cozaar ) 50 Mg Tablet, 50 MG PO DAILY, #30 Ref 5 Prescribed by: TATI DAN on 08/03/141245 Last Action: Continued on 04/02/221917 by KARLEE SCHWAB MD Metolazone (Zaroxolyn) 5 Mg Tablet, 5 MG PO TID, #90 Ref 5 Prescribed by: TATI DAN on 08/03/141245 Last Action: HELD on 04/02/221917 by KARLEE SCHWAB MD [Bumetanide] 1 MG TABLET, 2 MG PO BID92, #60 Ref 2 Prescribed by: TATI DAN on 08/03/141245 Last Action: HELD on 04/02/221917 by KARLEE SCHWAB MD [Hydralazine Hcl] 50 MG TABLET, 100 MG PO TID, #90 Ref 5 Prescribed by: TATI DAN on 08/03/14 1246 Last Action: HELD on 04/02/221917 by KARLEE SCHWAB MD Justicifation of Admission Dx: Justifications for Admission: Justification of Admission Dx: N/A KARLEE DASH MD April 06, 2022 14:56
[2022-04-06 15:00] VITALS: BP 129/52
--- NOTE | 2022-04-06 15:03 | NUR ---
SS following up with discharge planning. SS reviewed pt chart and discussed with pt RN. Pt is currently on room air. Pt has outpatient dialysis at [facility], ; fax [phone]. PT/OT recommended home with home healthcare. SS met with pt and discussed discharge planning and home healthcare services. Pt agreeable to home healthcare with no preference of company. Referral and discharge orders sent to [facility], ; fax [phone]. Pt accepted on services. Pt's RN notified.
--- NOTE | 2022-04-06 16:56 | NUR ---
Discharge Note: Wilbert Aviles Discharge instructions and discharge home medications reviewed with the patient and patient's daughter and a copy given. All questions have been answered and understanding verbalized. The following instructions and handouts were given: Home meds were adjusted, discussed sliding scale and risk for hypoglycemia REsume dialysis tomorrow as scheduled Follow up with PCP in a week Discontinued lines and drains: IV intact, no complications Patient discharged to home with home health via wheelchair on room air at 1615 accompanied by the patient's daughter.
--- NOTE | 2022-04-06 17:56 | CARD ---
MR#: [id number] Date of Study: 04/06/2022 Ordering Physician: MICHELLE CARABALLO, Referring Physician: MICHELLE CARABALLO, Tech: Toshia Thompson [facility] APPROVED REPORT EXAM: Two-dimensional and M-mode echocardiogram with Doppler and color Doppler. Other Information Quality : AverageHR: 61bpm Rhythm : NSR INDICATION Syncope RISK FACTORS Hypertension Hyperlipidemia Diabetes 2D DIMENSIONS RVDd4.4 (2.9-3.5cm)Left Atrium(2D)5.6 (1.6-4.0cm) IVSd1.8 (0.7-1.1cm)Aortic Root(2D)3.2 (2.0-3.7cm) LVDd4.8 (3.9-5.9cm)LVOT Diameter2.2 (1.8-2.4cm) PWd1.6 (0.7-1.1cm)LVDs2.2 (2.5-4.0cm) FS (%) 53.6 %SV91.6 ml Aortic Valve AoV Peak Wang.302.8cm/sAoV VTI57.7cm AO Peak GR.36.7mmHgLVOT Peak Wang.144.9cm/s AO Mean GR.17mmHgAVA (VMAX)1.87cm2 Tricuspid Valve TR P. [id number] Peak Gr.53mmHg LEFT VENTRICLE The left ventricle is normal size. There is mild to moderate concentric left ventricular hypertrophy. The left ventricular systolic function is normal. LV ejection fraction is 55 to 60%. There is shade l LV segmental wall motion. RIGHT VENTRICLE The right ventricle is normal size. The right ventricle is mildly hypertrophied. The right ventricula r systolic function is normal. ATRIA The left atrium is borderline dilated. The right atrium is mildly dilated. The interatrial septum is intact with no evidence for an atrial septal defect or patent foramen ovale as noted on 2-D or Dopple r imaging. AORTIC VALVE The aortic valve is calcified but opens well. Doppler and Color Flow revealed no significant aortic r egurgitation. There is no significant aortic valvular stenosis. MITRAL VALVE The mitral valve is normal in structure and function. There is no evidence of mitral valve prolapse. There is no mitral valve stenosis. Doppler and Color-flow revealed trace to mild mitral regurgitation . TRICUSPID VALVE The tricuspid valve is normal in structure and function. Doppler and Color Flow revealed mild tricusp id regurgitation. Estimated PAP 48 mmHg. There is no tricuspid valve stenosis. PULMONIC VALVE The pulmonary valve is normal in structure and function. Doppler and Color Flow revealed no pulmonic valvular regurgitation. GREAT VESSELS The aortic root is normal in size. The ascending aorta is normal in size. The IVC is normal in size a nd collapses >50% with inspiration. PERICARDIAL EFFUSION There is no evidence of significant pericardial effusion. Critical Notification Critical Value: No <Conclusion> The left ventricle is normal size. The left ventricular systolic function is normal. LV ejection fraction is 55 to 60%. There is mild to moderate concentric left ventricular hypertrophy. Doppler and Color Flow revealed no significant aortic regurgitation. There is no significant aortic valvular stenosis. Doppler and Color-flow revealed trace to mild mitral regurgitation. Doppler and Color Flow revealed mild tricuspid regurgitation. Estimated PAP 48 mmHg. Signed by : Ruddy Dale MD Electronically Approved : 04/06/2022 17:56:30
== END 2022-04-06 16:15 | disposition home health service (06) | DRG 314 ==
LOC: ER 14:00 → 5 NORTH 17:32
PROVIDERS: ADMIT Student in an Organized Health Care Education/Training Program; ATTEND Student in an Organized Health Care Education/Training Program
PROC: 5A1D70Z Performance of Urinary Filtration, Intermittent, Less than 6 Hours Per Day (ICD-10-PCS; principal; 2022-04-05)
DX: T82.898A Other specified complication of vascular prosthetic devices, implants and grafts, initial encounter (principal); N18.6 End stage renal disease; D62 Acute posthemorrhagic anemia; I12.0 Hypertensive chronic kidney disease with stage 5 chronic kidney disease or end stage renal disease; N25.81 Secondary hyperparathyroidism of renal origin; I95.1 Orthostatic hypotension; D63.1 Anemia in chronic kidney disease; E11.22 Type 2 diabetes mellitus with diabetic chronic kidney disease; E11.649 Type 2 diabetes mellitus with hypoglycemia without coma; E78.5 Hyperlipidemia, unspecified; E87.5 Hyperkalemia; Z79.4 Long term (current) use of insulin; Z79.82 Long term (current) use of aspirin; Z82.49 Family history of ischemic heart disease and other diseases of the circulatory system; Z83.3 Family history of diabetes mellitus; Z86.74 Personal history of sudden cardiac arrest; Z95.810 Presence of automatic (implantable) cardiac defibrillator; Z99.2 Dependence on renal dialysis; K21.9 Gastro-esophageal reflux disease without esophagitis; M19.90 Unspecified osteoarthritis, unspecified site; Z88.8 Allergy status to other drugs, medicaments and biological substances
CPT/HCPCS: 36415; 70450; 71045; 80048; 80053; 80061; 80069; 82550; 82962; 83690; 83735; 84443; 84484; 85025; 85027; 85610; 86850; 86900; 86901; 87493; 93005; 93306; J1644; J1815; J2405; J3010; J7040; 97535-GO; 99285-25; C8929; G0378; Q4081

== ENCOUNTER 2022-04-09 17:20 | Inpatient (IN) | payer MEDICARE ==
[~2022-04-09] VITALS: Ht 172.7 cm; Wt 73.8 kg
[~2022-04-09 17:20] MED LIST changes: +INSU100V11 IJ
[2022-04-09 18:19] LABS: BASO # 0.1 x10^3/uL (0.0-0.2); BASO % 1 % (0-3); EOS # 0.1 x10^3/uL (0.0-0.7); EOS % 2 % (0-3); HEMATOCRIT 23.8 % (39.0-53.0); HEMOGLOBIN 7.9 g/dL (13.0-17.5); LYMPH # 0.9 x10^3/uL (1.0-4.8); LYMPH % 20 % (24-48); MEAN CORPUSCULAR HEMOGLOBIN 32 pg (25-35); MEAN CORPUSCULAR HGB CONC 33 g/dL (31-37); MEAN CORPUSCULAR VOLUME 98 fL (79-100); MONO # 0.4 x10^3/uL (0.0-1.1); MONO % 8 % (0-9); NEUT # 3.1 x10^3/uL (1.8-7.7); NEUT % 69 % (31-73); PLATELET COUNT 158 x10^3/uL (140-400); RED BLOOD COUNT 2.42 x10^6/uL (4.30-5.70); RED CELL DISTRIBUTION WIDTH 14.1 % (11.5-14.5); WHITE BLOOD COUNT 4.5 x10^3/uL (4.0-11.0)
[2022-04-09] MEDS ORDERED: MORPHINE SULFATE 4 MG/ML INJ. IM ONE (18:30)
[2022-04-09] MEDS ORDERED: ONDANSETRON ODT 4 MG TAB.RAPDIS. PO ONE (18:30)
--- NOTE | 2022-04-09 18:34 | RAD ---
EXAM: XR CHEST 1V 04/09/2022 6:05 PM CLINICAL INDICATION: Chest pain 2 hours after dialysis COMPARISON: Chest radiograph 04/02/2022 TECHNIQUE: AP upright view of the chest FINDINGS: The heart is normal in size. There is a leadless pacemaker or loop recorder device. Lungs are adequately expanded. No consolidation, pleural effusion, or pneumothorax. No acute osseous abnorm ality. IMPRESSION: No acute cardiopulmonary abnormality. Electronically signed by: Eleanor Waters MD (04/09/2022 6:31 PM) [id number]
[2022-04-09] MEDS ORDERED: fentaNYL PF VIAL 100 MCG/2 ML VIAL IM ONE (19:00)
[2022-04-09 19:01] LABS: CALCIUM 8.2 mg/dL (8.5-10.1); CREATININE 4.2 mg/dL (0.7-1.3); GFR 17.5; POTASSIUM 4.9 mmol/L (3.5-5.1)
[2022-04-09 19:07] LABS: ALBUMIN 3.1 g/dL (3.4-5.0); TOTAL BILIRUBIN 0.3 mg/dL (0.2-1.0); TOTAL PROTEIN 6.1 g/dL (6.4-8.2)
--- NOTE | 2022-04-09 21:06 | PHYS DOC ---
Past Medical History Past Medical History: Diabetes-Type II, High Cholesterol, Hypertension, Renal Failure Additional Past Medical Histor: dialysis MWF, cardiac arrest r/t hyperkalemia Past Surgical History: Pacemaker, Other Additional Past Surgical Histo: FISTULA LEFT UPPER ARM, left great toe ampu tation, right 5th finger amputat Smoking Status: Never Smoker Alcohol Use: None General Adult EDM: Chief Complaint: CHEST PAIN HPI: HPI: Patient is a 61 year old male with past medical history that includes ESRD on dialysis MWF who presents with dizziness and chest pain after dialysis. Patient states that while he was at dialysis, the "needle came out," causing him to lose some blood. After 1.5 L were removed during his dialysis session, he states he felt dizzy. About 2 hours later, he developed chest pain. Patient describes the pain as a "pressure" in his central chest. Pain is not radiating or accompanied by diaphoresis, nausea/vomiting or palpitations. Patient states he felt similarly last week at dialysis when he experienced a similar situation. At that time last week, he lost over a 1/2 L of blood and was admitted to the hospital. Patient was discharged to home 3 days ago with home health. Review of Systems: Review of Systems: ROS negative or noncontributory except as mentioned in HPI. Heart Score: C/O Chest Pain: Yes HEART Score for Chest Pain: HEART Score for Chest Pain Response (Comments) Value History Slighlty/Non-Suspicious 0 ECG Nonspecific Repolarizatio 1 Age >45 - < 65 1 Risk Factors >3 Risk Factors or Hx CAD 2 Troponin < Normal Limit 0 Total 4 Risk Factors: Risk Factors: DM, HTN, HLD Risk Scores: Score 0 - 3: 2.5% MACE over next 6 weeks - Discharge Home Score 4 - 6: 20.3% MACE over next 6 weeks - Admit for Clinical Observation Score 7 - 10: 72.7% MACE over next 6 weeks - Early Invasive Strategies Current Medications: Current Medications Medications (Trade) Dose Ordered Sig/Mindy Start Time Stop Time Status Last Admin Dose Admin Fentanyl Citrate (Fentanyl 2ml Vial) 50 mcg 1X ONCE 04/09/22 19:00 04/09/22 19:01 DC 04/09/22 19:18 50 MCG Morphine Sulfate (Morphine Sulfate) 4 mg 1X ONCE 04/09/22 18:30 04/09/22 18:36 DC Ondansetron HCl (Zofran Odt) 4 mg 1X ONCE 04/09/22 18:30 04/09/22 18:31 DC 04/09/22 18:32 4 MG Allergies: Allergies: Allergies Coded Allergies Type Severity Reaction Last Updated Verified morphine Adverse Reaction Intermediate constipation 04/09/22 Yes nitroglycerin Adverse Reaction Intermediate Nausea and Vomiting 04/09/22 Yes rosuvastatin Adverse Reaction Intermediate N/V, FAINTING 04/09/22 No tramadol Adverse Reaction Intermediate N/V 04/09/22 Yes Physical Exam: PE: Constitutional: Thin, chronically ill-appearing, no acute distress. HENT: Normocephalic, atraumatic, bilateral external ears normal, nose normal. Eyes: EOMI, conjunctiva normal, no discharge. Neck: Normal range of motion, no stridor. Cardiovascular: Heart regular rate, regular rhythm. Lungs & Thorax: Equal thoracic expansion, no increased work of breathing. Skin: Warm, dry, no erythema, no rash, no pallor, no cyanosis. Extremities: No cyanosis, no clubbing, ROM intact, no edema. Neurologic: Alert and oriented x4, normal motor function, normal sensory function, no focal deficits noted. Current Patient Data: Labs: Laboratory Tests Test 04/09/22 18:05 White Blood Count 4.5 x10^3/uL (4.0-11.0) Red Blood Count 2.42 x10^6/uL (4.30-5.70) L Hemoglobin 7.9 g/dL (13.0-17.5) L Hematocrit 23.8 % (39.0-53.0) L Mean Corpuscular Volume 98 fL (79-100) Mean Corpuscular Hemoglobin 32 pg (25-35) Mean Corpuscular Hemoglobin Concent 33 g/dL (31-37) Red Cell Distribution Width 14.1 % (11.5-14.5) Platelet Count 158 x10^3/uL (140-400) Neutrophils (%) (Auto) 69 % (31-73) Lymphocytes (%) (Auto) 20 % (24-48) L Monocytes (%) (Auto) 8 % (0-9) Eosinophils (%) (Auto) 2 % (0-3) Basophils (%) (Auto) 1 % (0-3) Neutrophils # (Auto) 3.1 x10^3/uL (1.8-7.7) Lymphocytes # (Auto) 0.9 x10^3/uL (1.0-4.8) L Monocytes # (Auto) 0.4 x10^3/uL (0.0-1.1) Eosinophils # (Auto) 0.1 x10^3/uL (0.0-0.7) Basophils # (Auto) 0.1 x10^3/uL (0.0-0.2) Sodium Level 141 mmol/L (136-145) Potassium Level 4.9 mmol/L (3.5-5.1) Chloride Level 102 mmol/L (98-107) Carbon Dioxide Level 26 mmol/L (21-32) Anion Gap 13 (6-14) Blood Urea Nitrogen 17 mg/dL (8-26) Creatinine 4.2 mg/dL (0.7-1.3) H Estimated GFR (Cockcroft-Gault) 17.5 BUN/Creatinine Ratio 4 (6-20) L Glucose Level 404 mg/dL (70-99) H Calcium Level 8.2 mg/dL (8.5-10.1) L Total Bilirubin 0.3 mg/dL (0.2-1.0) Aspartate Amino Transferase (AST) 15 U/L (15-37) Alanine Aminotransferase (ALT) 16 U/L (16-63) Alkaline Phosphatase 85 U/L (46-116) Troponin I High Sensitivity 30 ng/L (4-75) Total Protein 6.1 g/dL (6.4-8.2) L Albumin 3.1 g/dL (3.4-5.0) L Albumin/Globulin Ratio 1.0 (1.0-1.7) Laboratory Tests 04/09/22 18:05 Laboratory Tests 04/09/22 18:05 Vital Signs: Vital Signs Date Time Temp Pulse Resp B/P (MAP) Pulse Ox O2 Delivery O2 Flow Rate FiO2 04/09/22 21:13 60 24 159/69 (99) 98 04/09/22 21:12 63 16 164/72 (102) 98 04/09/22 20:43 59 8 164/72 (102) 99 04/09/22 20:13 77 22 155/73 (100) 99 04/09/22 19:43 76 10 176/67 (103) 98 04/09/22 19:18 100 04/09/22 19:13 61 10 141/64 (89) 100 04/09/22 17:45 99.0 55 20 102/55 (71) 98 Room Air 99.0 EKG: EKG: EKG Interpreted by Dr. Echavarria at 1750: Irregularly irregular regular rhythm of 56 bpm with no ectopic beats. QT 498 ms/QTc 483 ms. No STEMI. I looked at the EKG again at 2101, and noticed that the EKG possibly shows third-degree heart block. I showed the EKG to Dr. Lopez, attending in the department, who agrees. Compared to prior EKG, which shows pattern consistent with Mobitz type II. Cardiology was urgently consulted for possible progression to complete heart block. Radiology/Procedures: Radiology/Procedures: PROCEDURE: PORTABLE CHEST 1V EXAM: XR CHEST 1V 04/09/2022 6:05 PM CLINICAL INDICATION: Chest pain 2 hours after dialysis COMPARISON: Chest radiograph 04/02/2022 TECHNIQUE: AP upright view of the chest FINDINGS: The heart is normal in size. There is a leadless pacemaker or loop recorder device. Lungs are adequately expanded. No consolidation, pleural effusion, or pneumothorax. No acute osseous abnormality. IMPRESSION: No acute cardiopulmonary abnormality. Electronically signed by: Eleanor Waters MD (04/09/2022 6:31 PM) [id number] Course & Med Decision Making: Course & Med Decision Making Pertinent Labs and Imaging studies reviewed. (See chart for details) Patient is a 61-year-old male dialyzed earlier today who presents with dizziness and chest pain. Cardiac work-up initiated. Patient's lab are reassuring when compared to labs on discharge 04/06/2022. EKG shows no STEMI and troponin is negative. I looked at the EKG again at 2101, and noticed that the EKG possibly shows third-degree heart block. I showed the EKG to Dr. Lopez, attending in the department, who agrees. Compared this EKG to prior EKG dated 04/02/2022, which shows pattern consistent with Mobitz type II. Cardiology was urgently consulted for possible progression to complete heart block. Dr. Westfall, cardiology, reviewed EKGs and agrees patient does appear to have a complete heart block. He would like the patient admitted to medicine and then he will place a pacemaker tomorrow. I discussed these findings with the patient, who reveals that he already has a pacemaker. On chest x-ray, there is a leadless pacemaker seen, though originally unclear whether it was loop recorder or pacemaker. Regardless, patient is currently in a complete heart block without pacing, which does require inpatient monitoring and attention. Had a lengthy discussion with the patient and his daughter at bedside regarding admission and cardiology consult. Initially, patient did not want to stay as he is very hungry. He states he does not eat before dialysis and was extremely frustrated at the news that the pattern setter would like to keep him n.p.o. I was asked to leave the room so that the patient and his daughter could discuss further. When they asked for the provider to come back, I discussed again the need for monitoring and to have the pacemaker interrogated. Patient is agreeable to admission. Additionally, Dr. Westfall would like the patient n.p.o. beginning at midnight, so the patient was able to eat something here in the department. Patient is currently chest pain-free and comfortable. Shakila Disclaimer: Shakila Disclaimer: This electronic medical record was generated, in whole or in part, using a voice recognition dictation system. Departure Departure Impression: Primary Impression: Complete heart block Additional Impressions: Lightheadedness Chest pain at rest ESRD (end stage renal disease) on dialysis Disposition: ADMITTED INPATIENT Admitting Physician: SEB Matthews) Condition: GUARDED Referrals: UNKNOWN PCP NAME (PCP) VICTOR M ESPINOSA April 09, 2022 21:06
[2022-04-09] MEDS: fentaNYL PF VIAL 100 MCG/2 ML VIAL IVP PRN (23:39)
[2022-04-09 23:55] VITALS: BP 136/59
[2022-04-10] MEDS: fentaNYL PF VIAL 100 MCG/2 ML VIAL IVP PRN ×3 (02:35→08:54)
[2022-04-10 03:00] VITALS: BP 179/87
[2022-04-10 07:00] VITALS: BP 190/91
[2022-04-10] MEDS ORDERED: CLOPIDOGREL BISULFATE 75 MG TABLET PO SCH (08:00)
[2022-04-10] MEDS ORDERED: DEXTROSE 50% 25 GM / 50ML DISP.SYRIN. IV PRN (08:00)
[2022-04-10] MEDS ORDERED: fentaNYL PF VIAL 100 MCG/2 ML VIAL IVP PRN (08:00)
[2022-04-10] MEDS ORDERED: ONDANSETRON PF 4 MG/2 ML VIAL. IVP PRN (08:00)
[2022-04-10] MEDS ORDERED: hydrALAZINE 20 MG/ML VIAL. IVP PRN (08:00)
[2022-04-10] MEDS ORDERED: traZODone 50 MG TABLET. PO PRN (08:00)
[2022-04-10] MEDS ORDERED: ACETAMINOPHEN 325 MG TABLET. PO PRN (08:00)
--- NOTE | 2022-04-10 08:07 | PDOC1 ---
History and Physical Date of Admission Date of Admission DATE: 04/10/22 TIME: 07:51 Identification/Chief Complaint Chief Complaint Chest pain Source Source: Patient History of Present Illness History of Present Illness Mr Aviles is a 61yo male with PMHx diabetes mellitus, hypertension, hyperlipidemia, anemia of chronic kidney disease, secondary hyperparathyroidism, ESRD on HD on MWF who came to ED after his vascular access needle became dislodged and he had blood loss and experienced some dizziness and diaphoresis as well as chest pressure. He was brought to the hospital for further evaluation and management. He experienced the same thing almost exactly 1 week prior after dialysis session and did have a significant drop in his hemoglobin did not require transfusion at the time. He was discharged home with home health Labs with WBC 4.5, Hb 7.9, platelets 158, NA 141, K4.9, BUN 17, CR 4.2, glucose 404, calcium 8.2, albumin 3.1, high-sensitivity troponin is 30 EKG concern for Mobitz type II block with intermittent complete heart block on telemetry. Cardiology was consulted from the ED patient notes he has a leadless pacemaker. Past Medical History Cardiovascular: HTN, Hyperlipidemia CENTRAL NERVOUS SYSTEM: Periperal neuropathy GI: GERD Heme/Onc: Anemia NOS Musculoskeletal: Osteoarthritis Renal/: Chronic renal failure Endocrine: Diabetes Past Surgical History Past Surgical History: Other Family History Family History: Diabetes, Hypertension Social History Smoke: No ALCOHOL: none Drugs: None Current Problem List Problem List Problems Medical Problems: (1) Chest pain at rest Status: Acute (2) Complete heart block Status: Acute (3) ESRD (end stage renal disease) on dialysis Status: Acute (4) Lightheadedness Status: Acute Current Medications Current Medications Current Medications Morphine Sulfate (Morphine Sulfate) 4 mg 1X ONCE IM ; Start 04/09/22 at 18:30; Stop 04/09/22 at 18:36; Status DC Ondansetron HCl (Zofran Odt) 4 mg 1X ONCE PO Last administered on 04/09/22at 18:32; Start 04/09/22 at 18:30; Stop 04/09/22 at 18:31; Status DC Fentanyl Citrate (Fentanyl 2ml Vial) 50 mcg 1X ONCE IM Last administered on 04/09/22at 19:18; Start 04/09/22 at 19:00; Stop 04/09/22 at 19:01; Status DC Fentanyl Citrate (Fentanyl 2ml Vial) 50 mcg PRN Q2HR PRN IVP PAIN Last administered on 04/10/22at 05:04; Start 04/09/22 at 22:15; Stop 04/10/22 at 22:14 Active Scripts Active Plavix (Clopidogrel Bisulfate) 75 Mg Tablet 75 Mg PO [id number] Reported Novolin R (Insulin Regular, Human) 100 Unit/1 Ml Vial Unknown Dose IJ TIDWMEALS Lantus Solostar (Insulin Glargine,Hum.rec.anlog) 100 Unit/1 Ml Insuln.pen 15 Unit SQ QHS Aspir 81 (Aspirin) 81 Mg Tablet.dr 81 Mg PO DAILY Trazodone Hcl 50 Mg Tablet 50 Mg PO PRN QHS PRN Senokot (Sennosides) 8.6 Mg Tablet 8.6 Mg PO PRN DAILY PRN Vitamin D3 (Cholecalciferol (Vitamin D3)) 1,000 Unit Tablet 1,000 Unit PO DAILY Atorvastatin Calcium 20 Mg Tablet 20 Mg PO HS Amlodipine Besylate 10 Mg Tablet 10 Mg PO DAILY Allergies Allergies: Coded Allergies: morphine (Verified Adverse Reaction, Intermediate, constipation, 04/09/22) nitroglycerin (Verified Adverse Reaction, Intermediate, Nausea and Vomiting, 04/09/22) rosuvastatin (Unverified Adverse Reaction, Intermediate, N/V, FAINTING, 04/09/22) tramadol (Verified Adverse Reaction, Intermediate, N/V, 04/09/22) HAS TOLERATED MORPHINE ROS General: YES: Fatigue, Malaise; No: Chills, Night Sweats, Appetite, Other PSYCHOLOGICAL ROS: No: Anxiety, Behavioral Disorder, Concentration difficultie, Decreased libido, Depression, Disorientation, Hallucinations, Hostility, Irritablity, Memory difficulties, Mood Swings, Obsessive thoughts, Physical abuse, Sexual abuse, Sleep disturbances, Suicidal ideation, Other Eyes: No Blurry vision, No Decreased vision, No Double vision, No Dry eyes, No Excessive tearing, No Eye Pain, No Itchy Eyes, No Loss of vision, No Photophobia , No Scotomata, No Uses contacts, No Uses glasses, No Other HEENT: No: Heacaches, Visual Changes, Hearing change, Nasal congestion, Nasal discharge, Oral lesions, Sinus pain, Sore Throat, Epistaxis, Sneezing, Snoring, Tinnitus, Vertigo, Vocal changes, Other ALLERGY AND IMMUNOLOGY: No: Hives, Insect Bite Sensitivity, Itchy/Watery Eyes, Nasal Congestion, Post Nasal Drip, Seasonal Allergies, Other Hematological and Lymphatic: YES: Bleeding Problems; No: Blood Clots, Blood Transfusions, Brusing, Night Sweats, Pallor, Swollen Lymph Nodes, Other ENDOCRINE: No: Breast Changes, Galactorrhea, Hair Pattern Changes, Hot Flashes, Malaise/lethargy, Mood Swings, Palpitations, Polydipsia/polyuria, Skin Changes, Temperature Intolerance, Unexpected Weight Changes, Other Breast: No New/Changing Breast Lumps, No Nipple changes, No Nipple discharge, No Other Respiratory: No: Cough, Hemoptysis, Orthopnea, Pleuritic Pain, Shortness of breath, SOB with excertion, Sputum Changes, Stridor, Tachypnea, Wheezing, Other Cardiovascular: yes Chest Pain; No Palpitations, No Orthopnea, No Paroxysmal Noc. Dyspnea, No Edema, No Lt Headedness, No Other Gastrointestinal: No Nausea, No Vomiting, No Abdominal Pain, No Diarrhea, No Constipation, No Melena, No Hematochezia, No Other Genitourinary: No Dysuria, No Frequency, No Incontinence, No Hematuria, No Retention, No Discharge, No Urgency, No Pain, No Flank Pain, No Other, No , No , No , No , No , No , No Musculoskeletal: No Gait Disturbance, No Joint Pain, No Joint Stiffness, No Joint Swelling, No Muscle Pain, No Muscular Weakness, No Pain In:, No Swelling In:, No Other Neurological: No Behavorial Changes, No Bowel/Bladder ControlChng, No Confusion, No Dizziness, No Gait Disturbance, No Headaches, No Impaired Coord/ balance, No Memory Loss, No Numbness/Tingling, No Seizures, No Speech Problems, No Tremors, No Visual Changes, No Weakness, No Other Skin: No Dry Skin, No Eczema, No Hair Changes, No Lumps, No Mole Changes, No Mottling, No Nail Changes, No Pruritus, No Rash, No Skin Lesion Changes, No Other, No Acne Physical Exam General: Alert, Oriented X3, Cooperative, No acute distress HEENT: Atraumatic, PERRLA, EOMI, Mucous membr. moist/pink Lungs: Clear to auscultation, Normal air movement Heart: S1S2, RRR, no thrills, no rubs, no gallops, no murmurs Abdomen: Normal bowel sounds, Soft, No tenderness, No hepatosplenomegaly, No ma sses Rectal Exam: not examined Skin: No rashes, No breakdown, No significant lesion Neuro: Normal gait, Normal speech, Strength at 5/5 X4 ext, Normal tone, Sensation intact, Cranial nerves 3-12 NL, Reflexes 2+ Psych/Mental Status: Mental status NL, Mood NL Vitals Vitals Vital Signs Date Time Temp Pulse Resp B/P (MAP) Pulse Ox O2 Delivery O2 Flow Rate FiO2 04/10/22 05:34 98 Room Air 04/10/22 05:04 16 04/10/22 03:00 98.0 110 179/87 (117) 98.0 Labs Labs Laboratory Tests Test 04/09/22 18:05 04/09/22 20:30 White Blood Count 4.5 x10^3/uL (4.0-11.0) Red Blood Count 2.42 x10^6/uL (4.30-5.70) Hemoglobin 7.9 g/dL (13.0-17.5) Hematocrit 23.8 % (39.0-53.0) Mean Corpuscular Volume 98 fL (79-100) Mean Corpuscular Hemoglobin 32 pg (25-35) Mean Corpuscular Hemoglobin Concent 33 g/dL (31-37) Red Cell Distribution Width 14.1 % (11.5-14.5) Platelet Count 158 x10^3/uL (140-400) Neutrophils (%) (Auto) 69 % (31-73) Lymphocytes (%) (Auto) 20 % (24-48) Monocytes (%) (Auto) 8 % (0-9) Eosinophils (%) (Auto) 2 % (0-3) Basophils (%) (Auto) 1 % (0-3) Neutrophils # (Auto) 3.1 x10^3/uL (1.8-7.7) Lymphocytes # (Auto) 0.9 x10^3/uL (1.0-4.8) Monocytes # (Auto) 0.4 x10^3/uL (0.0-1.1) Eosinophils # (Auto) 0.1 x10^3/uL (0.0-0.7) Basophils # (Auto) 0.1 x10^3/uL (0.0-0.2) Sodium Level 141 mmol/L (136-145) Potassium Level 4.9 mmol/L (3.5-5.1) Chloride Level 102 mmol/L (98-107) Carbon Dioxide Level 26 mmol/L (21-32) Anion Gap 13 (6-14) Blood Urea Nitrogen 17 mg/dL (8-26) Creatinine 4.2 mg/dL (0.7-1.3) Estimated GFR (Cockcroft-Gault) 17.5 BUN/Creatinine Ratio 4 (6-20) Glucose Level 404 mg/dL (70-99) Calcium Level 8.2 mg/dL (8.5-10.1) Total Bilirubin 0.3 mg/dL (0.2-1.0) Aspartate Amino Transf (AST/SGOT) 15 U/L (15-37) Alanine Aminotransferase (ALT/SGPT) 16 U/L (16-63) Alkaline Phosphatase 85 U/L (46-116) Troponin I High Sensitivity 30 ng/L (4-75) 29 ng/L (4-75) Total Protein 6.1 g/dL (6.4-8.2) Albumin 3.1 g/dL (3.4-5.0) Albumin/Globulin Ratio 1.0 (1.0-1.7) Laboratory Tests Test 04/09/22 18:05 04/09/22 20:30 White Blood Count 4.5 x10^3/uL (4.0-11.0) Red Blood Count 2.42 x10^6/uL (4.30-5.70) Hemoglobin 7.9 g/dL (13.0-17.5) Hematocrit 23.8 % (39.0-53.0) Mean Corpuscular Volume 98 fL (79-100) Mean Corpuscular Hemoglobin 32 pg (25-35) Mean Corpuscular Hemoglobin Concent 33 g/dL (31-37) Red Cell Distribution Width 14.1 % (11.5-14.5) Platelet Count 158 x10^3/uL (140-400) Neutrophils (%) (Auto) 69 % (31-73) Lymphocytes (%) (Auto) 20 % (24-48) Monocytes (%) (Auto) 8 % (0-9) Eosinophils (%) (Auto) 2 % (0-3) Basophils (%) (Auto) 1 % (0-3) Neutrophils # (Auto) 3.1 x10^3/uL (1.8-7.7) Lymphocytes # (Auto) 0.9 x10^3/uL (1.0-4.8) Monocytes # (Auto) 0.4 x10^3/uL (0.0-1.1) Eosinophils # (Auto) 0.1 x10^3/uL (0.0-0.7) Basophils # (Auto) 0.1 x10^3/uL (0.0-0.2) Sodium Level 141 mmol/L (136-145) Potassium Level 4.9 mmol/L (3.5-5.1) Chloride Level 102 mmol/L (98-107) Carbon Dioxide Level 26 mmol/L (21-32) Anion Gap 13 (6-14) Blood Urea Nitrogen 17 mg/dL (8-26) Creatinine 4.2 mg/dL (0.7-1.3) Estimated GFR (Cockcroft-Gault) 17.5 BUN/Creatinine Ratio 4 (6-20) Glucose Level 404 mg/dL (70-99) Calcium Level 8.2 mg/dL (8.5-10.1) Total Bilirubin 0.3 mg/dL (0.2-1.0) Aspartate Amino Transf (AST/SGOT) 15 U/L (15-37) Alanine Aminotransferase (ALT/SGPT) 16 U/L (16-63) Alkaline Phosphatase 85 U/L (46-116) Troponin I High Sensitivity 30 ng/L (4-75) 29 ng/L (4-75) Total Protein 6.1 g/dL (6.4-8.2) Albumin 3.1 g/dL (3.4-5.0) Albumin/Globulin Ratio 1.0 (1.0-1.7) Images Images PORTABLE CHEST 1V EXAM: XR CHEST 1V 04/09/2022 6:05 PM CLINICAL INDICATION: Chest pain 2 hours after dialysis COMPARISON: Chest radiograph 04/02/2022 TECHNIQUE: AP upright view of the chest FINDINGS: The heart is normal in size. There is a leadless pacemaker or loop recorder device. Lungs are adequately expanded. No consolidation, pleural effusion, or pneumothorax. No acute osseous abnormality. IMPRESSION: No acute cardiopulmonary abnormality. VTE Prophylaxis Ordered VTE Prophylaxis Devices: No VTE Pharmacological Prophylaxi: Yes Assessment/Plan Assessment/Plan Chest pain -possible intermittent complete heart block question leadless pacemaker malfunctioning, however, he is pacing on my examination Acute blood loss anemia -did not require transfusion. Will need outpatient monitoring Hyperkalemia -stop losartan. Low K diet emphasized Dizziness -likely due to acute blood loss and orthostasis improved. ESRD Tuesday - RUE fistula Diabetes -low sliding scale and basal insulin. Would not schedule insulin given some hypoglycemic episodes. Hyperglycemia Hypertension -moving toward lower blood pressures cut back to just amlodipine we will continue to monitor SSS s/p PPM - follows at [facility] PVD - s/p FISTULA LEFT UPPER ARM, left great toe amputation, right 5th finger amputation FEN - Renal dialysis PPX - heparin FULL CODE Dispo - observation Justifications for Admission Other Justification KARLEE DASH MD April 10, 2022 08:07
[2022-04-10] MEDS ORDERED: INSULIN LISPRO 300 UNITS/3 ML VIAL. SQ SCH (08:30)
[2022-04-10 08:51] LABS: HEMOGLOBIN 7.4 g/dL (13.0-17.5); RED BLOOD COUNT 2.28 x10^6/uL (4.30-5.70); RED CELL DISTRIBUTION WIDTH 14.6 % (11.5-14.5); WHITE BLOOD COUNT 5.8 x10^3/uL (4.0-11.0)
[2022-04-10] MEDS ORDERED: CHOLECALCIFEROL (VITAMIN D3) 1,000 UNIT TABLET PO SCH (09:00)
[2022-04-10] MEDS ORDERED: ASPIRIN ENTERIC COATED 81 MG TABLET.DR. PO SCH (09:00)
[2022-04-10 09:14] LABS: CALCIUM 8.4 mg/dL (8.5-10.1); CREATININE 5.6 mg/dL (0.7-1.3); GFR 12.6; POTASSIUM 5.4 mmol/L (3.5-5.1)
--- NOTE | 2022-04-10 09:37 | PDOC ---
PROGRESS NOTES Date of Service: DATE: 04/10/22 TIME: 09:37 Subjective Subjective 61-year-old male who was recently discharged from [facility] after treatment for acute blood loss anemia apparently went home after hemodialysis and soon after he ate food, he had nausea and started having retrosternal chest pain that he described as pressure-like sensation. This has currently resolved. He denied any shortness of breath, palpitations or syncope. Objective Objective Vital Signs Date Time Temp Pulse Resp B/P (MAP) Pulse Ox O2 Delivery O2 Flow Rate FiO2 04/10/22 08:54 98 Room Air 04/10/22 07:00 98.1 103 17 190/91 (124) 98.1 Intake and Output 04/10/22 07:00 Intake Total 250 ml Balance 250 ml Intake Oral 250 ml # Bowel Movements 1 Physical Exam Abdomen: Soft, No tenderness Heart: Regular rate Extremities: No edema General: Alert HEENT: Atraumatic Lungs: Clear to auscultation MUSCULOSKELETAL: Osteoarthritic changes both hands Neck: Supple Neuro: Normal speech Psych/Mental Status: Mood NL Assessment Assessment 1. Chest pain with atypical features and most probably GI etiology. This has currently resolved. Recent 2D echo 04/06/2022 showed normal LV systolic function with EF 55 to 60% without any wall motion abnormalities. Consider ischemic evaluation as an outpatient with primary braille teacher. 2. Anemia: Treat per IM 3. Hypertension; controlled 4. Hyperlipidemia: Continue statin therapy 5. Diabetes, II: Treat per IM 6. ESRD on HD per nephrology team 7. Complete heart block s/p leadless (Micra) PPM. Telemetry showed ventricular paced rhythm with underlying complete heart block. No evidence of pacemaker malfunction. Follow-up with primary braille teacher at [place]. Plan Plan of Care Problems Medical Problems: (1) Chest pain at rest Status: Acute (2) Complete heart block Status: Acute (3) ESRD (end stage renal disease) on dialysis Status: Acute (4) Lightheadedness Status: Acute Comment Review of Relevant I have reviewed the following items otf (where applicable) has been applied. Labs Laboratory Tests Test 04/09/22 18:05 04/09/22 20:30 04/10/22 07:53 04/10/22 08:30 White Blood Count 4.5 x10^3/uL (4.0-11.0) 5.8 x10^3/uL (4.0-11.0) Red Blood Count 2.42 x10^6/uL (4.30-5.70) 2.28 x10^6/uL (4.30-5.70) Hemoglobin 7.9 g/dL (13.0-17.5) 7.4 g/dL (13.0-17.5) Hematocrit 23.8 % (39.0-53.0) 23.0 % (39.0-53.0) Mean Corpuscular Volume 98 fL (79-100) 101 fL (79-100) Mean Corpuscular Hemoglobin 32 pg (25-35) 32 pg (25-35) Mean Corpuscular Hemoglobin Concent 33 g/dL (31-37) 32 g/dL (31-37) Red Cell Distribution Width 14.1 % (11.5-14.5) 14.6 % (11.5-14.5) Platelet Count 158 x10^3/uL (140-400) 154 x10^3/uL (140-400) Neutrophils (%) (Auto) 69 % (31-73) Lymphocytes (%) (Auto) 20 % (24-48) Monocytes (%) (Auto) 8 % (0-9) Eosinophils (%) (Auto) 2 % (0-3) Basophils (%) (Auto) 1 % (0-3) Neutrophils # (Auto) 3.1 x10^3/uL (1.8-7.7) Lymphocytes # (Auto) 0.9 x10^3/uL (1.0-4.8) Monocytes # (Auto) 0.4 x10^3/uL (0.0-1.1) Eosinophils # (Auto) 0.1 x10^3/uL (0.0-0.7) Basophils # (Auto) 0.1 x10^3/uL (0.0-0.2) Sodium Level 141 mmol/L (136-145) 137 mmol/L (136-145) Potassium Level 4.9 mmol/L (3.5-5.1) 5.4 mmol/L (3.5-5.1) Chloride Level 102 mmol/L (98-107) 100 mmol/L (98-107) Carbon Dioxide Level 26 mmol/L (21-32) 25 mmol/L (21-32) Anion Gap 13 (6-14) 12 (6-14) Blood Urea Nitrogen 17 mg/dL (8-26) 29 mg/dL (8-26) Creatinine 4.2 mg/dL (0.7-1.3) 5.6 mg/dL (0.7-1.3) Estimated GFR (Cockcroft-Gault) 17.5 12.6 BUN/Creatinine Ratio 4 (6-20) Glucose Level 404 mg/dL (70-99) 616 mg/dL (70-99) Calcium Level 8.2 mg/dL (8.5-10.1) 8.4 mg/dL (8.5-10.1) Total Bilirubin 0.3 mg/dL (0.2-1.0) Aspartate Amino Transf (AST/SGOT) 15 U/L (15-37) Alanine Aminotransferase (ALT/SGPT) 16 U/L (16-63) Alkaline Phosphatase 85 U/L (46-116) Troponin I High Sensitivity 30 ng/L (4-75) 29 ng/L (4-75) Total Protein 6.1 g/dL (6.4-8.2) Albumin 3.1 g/dL (3.4-5.0) Albumin/Globulin Ratio 1.0 (1.0-1.7) Glucose (Fingerstick) 568 mg/dL (70-99) Medications Current Medications Acetaminophen (Tylenol) 650 mg PRN Q6HRS PRN PO MILD PAIN / TEMP > 100.3'F; Start 04/10/22 at 08:00 Amlodipine Besylate (Norvasc) 10 mg DAILY PO ; Start 04/10/22 at 09:00 Aspirin (Ecotrin) 81 mg DAILY PO ; Start 04/10/22 at 09:00 Atorvastatin Calcium (Lipitor) 20 mg HS PO ; Start 04/10/22 at 21:00 Clopidogrel Bisulfate (Plavix) 75 mg DAILYWBKFT PO ; Start 04/10/22 at 08:00 Dextrose (Dextrose 50%-Water Syringe) 12.5 gm PRN Q15MIN PRN IV SEE COMMENTS; Start 04/10/22 at 08:00 Fentanyl Citrate (Fentanyl 2ml Vial) 25 mcg PRN Q3HRS PRN IVP SEVERE PAIN 7-10; Start 04/10/22 at 08:00 Fentanyl Citrate (Fentanyl 2ml Vial) 50 mcg 1X ONCE IM Last administered on 04/09/22at 19:18; Start 04/09/22 at 19:00; Stop 04/09/22 at 19:01; Status DC Fentanyl Citrate (Fentanyl 2ml Vial) 50 mcg PRN Q2HR PRN IVP PAIN Last administered on 04/10/22at 08:54; Start 04/09/22 at 22:15; Stop 04/10/22 at 22:14 Hydralazine HCl (Apresoline Inj) 10 mg PRN Q4HRS PRN IVP ELEVATED BP, SEE COMMENTS; Start 04/10/22 at 08:00 Insulin Glargine (Lantus Syringe) 15 unit QHS SQ ; Start 04/10/22 at 21:00 Insulin Human Lispro (HumaLOG) 0-9 UNITS TIDACHC SQ Last administered on 04/10/22at 09:03; Start 04/10/22 at 08:30 Morphine Sulfate (Morphine Sulfate) 4 mg 1X ONCE IM ; Start 04/09/22 at 18:30; Stop 04/09/22 at 18:36; Status DC Ondansetron HCl (Zofran Odt) 4 mg 1X ONCE PO Last administered on 04/09/22at 18:32; Start 04/09/22 at 18:30; Stop 04/09/22 at 18:31; Status DC Ondansetron HCl (Zofran) 4 mg PRN Q4HRS PRN IVP NAUSEA/VOMITING; Start 04/10/22 at 08:00 Trazodone HCl (Desyrel) 50 mg PRN QHS PRN PO INSOMNIA; Start 04/10/22 at 08:00 Vitamin D (Vitamin D3) 1,000 unit DAILY PO ; Start 04/10/22 at 09:00 Vitals/I & O Vital Sign - Last 24 Hours 04/09/22 04/09/22 04/09/22 04/09/22 17:45 19:13 19:18 19:43 Temp 99.0 99.0 Pulse 55 61 76 Resp 20 10 10 B/P (MAP) 102/55 (71) 141/64 (89) 176/67 (103) Pulse Ox 98 100 100 98 O2 Delivery Room Air 04/09/22 04/09/22 04/09/22 04/09/22 20:13 20:43 21:12 21:13 Pulse 77 59 63 60 Resp 22 8 16 24 B/P (MAP) 155/73 (100) 164/72 (102) 164/72 (102) 159/69 (99) Pulse Ox 99 99 98 98 04/09/22 04/09/22 04/09/22 04/09/22 21:43 22:13 22:43 23:13 Pulse 69 82 76 74 B/P (MAP) 156/68 (97) 132/70 (90) 127/61 (83) 101/56 (71) Pulse Ox 100 100 97 95 04/09/22 04/09/22 04/09/22 04/10/22 23:39 23:43 23:55 00:09 Temp 98.9 98.9 Pulse 80 89 Resp 18 16 B/P (MAP) 150/67 (94) 136/59 (84) Pulse Ox 99 99 100 99 O2 Delivery Room Air Room Air 04/10/22 04/10/22 04/10/22 04/10/22 01:00 02:35 03:00 03:05 Temp 98.0 98.0 Pulse 110 Resp 16 17 16 B/P (MAP) 179/87 (117) Pulse Ox 99 98 98 O2 Delivery Room Air Room Air Room Air Room Air 04/10/22 04/10/22 04/10/22 04/10/22 05:04 05:34 07:00 08:54 Temp 98.1 98.1 Pulse 103 Resp 16 17 B/P (MAP) 190/91 (124) Pulse Ox 98 98 98 98 O2 Delivery Room Air Room Air Room Air Room Air Intake and Output 04/09/22 04/09/22 04/10/22 15:00 23:00 07:00 Intake Total 250 ml Balance 250 ml COURTNEY ARIZMENDI MD April 10, 2022 09:37
[2022-04-10] MEDS ORDERED: SODIUM BICARB ADULT 8.4% 50 MEQ/50 ML DISP.SYRIN. IV ONE (10:00)
[2022-04-10 10:24] VITALS: BP 106/52
--- NOTE | 2022-04-10 10:36 | SNU/HH DC ---
DISCHARGE WITH HOME HEALTH DISCHARGE INFORMATION: Discharge Date: April 10, 2022 Final Diagnosis: Problems Medical Problems: (1) Chest pain at rest Status: Acute (2) Complete heart block Status: Acute (3) ESRD (end stage renal disease) on dialysis Status: Acute (4) Lightheadedness Status: Acute Condition on Discharge: Stable CODE STATUS: Code Status: Full HOME HEALTH: Face to Face: I certify this patient is under my care and that I, or a nurse practitioner or physician's pizza hut assistant working with me, had a face to face encounter that meets the physician face to face encounter requirements with this patient on 04/10/2022. Medical Complications: DM, HTN, Other (Dialysis) Longterm For: Assess Cardiopulm Status, Assess & Educate Safety, Ass ess/Skilled Observatio, Diabetic Care, Medication Management RN For Eval/Treatment: Yes Physical Therapy For: Evalulation/Treatment Occupational Therapy For: Evaluation/Treatment Pt Meets Homebound Status: Limited distance walking POST DISCHARGE ORDERS: Activity Instructions for Disc: Activity as tolerated Weight Bearing Status after Di: Full weight bearing DIET AFTER DISCHARGE: Renal Wound/Incision Care: Keep wound/cast CDI CHECKS AFTER DISCHARGE: Checks after discharge: Check blood press - daily, Check blood sugar, ac/hs, Weigh Yourself Daily TREATMENT/EQUIPMENT ORDERS: Adaptive Equipment Issued: None CERTIFICATION STATEMENT: Certification Statement: Certification Statement: Based on the above finding, I certify that this patient is confined to the home and needs intermittent snf care, physical therapy and/or speech therapy, or continues to need occupational therapy.~ This patient is under my care, and I have initiated the establishment of the plan of care.~ This patient will be followed by myself or a community physician who will periodically review the plan of care. Home Meds Active Scripts Clopidogrel Bisulfate (PLAVIX) 75 Mg Tablet, 75 MG PO DAILYWBKFT, #10 0 Refills Prov:TATI DAN MD 08/03/14 Reported Medications Insulin Regular, Human (NOVOLIN R) 100 Unit/1 Ml Vial, IJ TIDWMEALS for blood glucose SLIDING SCALE ON, EACH 04/03/22 Insulin Glargine,Hum.rec.anlog (LANTUS SOLOSTAR) 100 Unit/1 Ml Insuln.pen, 15 UNIT SQ QHS for blood glucose, #15 ML 3 Refills 04/03/22 Aspirin (ASPIR 81) 81 Mg Tablet.dr, 81 MG PO DAILY, TAB 07/26/14 Trazodone Hcl (TRAZODONE HCL) 50 Mg Tablet, 50 MG PO PRN QHS PRN for INSOMNIA, TAB 07/26/14 Sennosides (SENOKOT) 8.6 Mg Tablet, 8.6 MG PO PRN DAILY PRN for CONSTIPATION 07/26/14 Cholecalciferol (Vitamin D3) (VITAMIN D3) 1,000 Unit Tablet, 1000 UNIT PO DAILY 07/26/14 Atorvastatin Calcium (ATORVASTATIN CALCIUM) 20 Mg Tablet, 20 MG PO HS for FOR CHOLESTEROL, #30 TAB 0 Refills 07/26/14 Amlodipine Besylate (AMLODIPINE BESYLATE) 10 Mg Tablet, 10 MG PO DAILY, TAB 07/26/14 Discontinued Reported Medications Clonidine Hcl (CLONIDINE HCL) 0.3 Mg Tablet, 0.3 MG PO TID, TAB 07/26/14 Hydralazine Hcl (HYDRALAZINE HCL) 100 Mg Tablet, 1 TAB PO TID, #90 TAB 3 Refills 07/26/14 Acetaminophen With Codeine (TYLENOL WITH CODEINE #3 TABLET) 1 Each Tablet, 1 TAB PO Q6HRS, #30 TAB 07/26/14 Discontinued Scripts [Bumetanide] 1 MG TABLET No Conflict Check, 2 MG PO BID92, #60 2 Refills Prov:TATI DAN MD 08/03/14 Metolazone (ZAROXOLYN) 5 Mg Tablet, 5 MG PO TID, #90 5 Refills Prov:TATI DAN MD 08/03/14 Losartan Potassium (COZAAR ) 50 Mg Tablet, 50 MG PO DAILY, #30 5 Refills Prov:TATI DAN MD 08/03/14 Labetalol Hcl (TRANDATE) 200 Mg Tablet, 100 MG PO BID, #60 5 Refills Prov:TATI DAN MD 08/03/14 [Hydralazine Hcl] 50 MG TABLET No Conflict Check, 100 MG PO TID, #90 5 Refills Prov:TATI DAN MD 08/03/14 KARLEE DASH MD April 10, 2022 10:36
--- NOTE | 2022-04-10 10:38 | PDOC3 ---
Discharge Summary Visit Information Date of Admission: April 09, 2022 Date of Discharge: April 10, 2022 Admitting Diagnosis: Chest pain Final Diagnosis Problems Medical Problems: (1) Chest pain at rest Status: Acute (2) Complete heart block Status: Acute (3) ESRD (end stage renal disease) on dialysis Status: Acute (4) Lightheadedness Status: Acute Brief Hospital Course Allergies Allergies Coded Allergies Type Severity Reaction Last Updated Verified morphine Adverse Reaction Intermediate constipation 04/09/22 Yes nitroglycerin Adverse Reaction Intermediate Nausea and Vomiting 04/09/22 Yes rosuvastatin Adverse Reaction Intermediate N/V, FAINTING 04/09/22 No tramadol Adverse Reaction Intermediate N/V 04/09/22 Yes Vital Signs Vital Signs Date Time Temp Pulse Resp B/P (MAP) Pulse Ox O2 Delivery O2 Flow Rate FiO2 04/10/22 10:24 98.0 62 17 106/52 (70) 96 Room Air 98.0 Lab Results Laboratory Tests Test 04/09/22 18:05 04/09/22 20:30 04/10/22 07:53 04/10/22 08:30 White Blood Count 4.5 x10^3/uL (4.0-11.0) 5.8 x10^3/uL (4.0-11.0) Red Blood Count 2.42 x10^6/uL (4.30-5.70) 2.28 x10^6/uL (4.30-5.70) Hemoglobin 7.9 g/dL (13.0-17.5) 7.4 g/dL (13.0-17.5) Hematocrit 23.8 % (39.0-53.0) 23.0 % (39.0-53.0) Mean Corpuscular Volume 98 fL (79-100) 101 fL (79-100) Mean Corpuscular Hemoglobin 32 pg (25-35) 32 pg (25-35) Mean Corpuscular Hemoglobin Concent 33 g/dL (31-37) 32 g/dL (31-37) Red Cell Distribution Width 14.1 % (11.5-14.5) 14.6 % (11.5-14.5) Platelet Count 158 x10^3/uL (140-400) 154 x10^3/uL (140-400) Neutrophils (%) (Auto) 69 % (31-73) Lymphocytes (%) (Auto) 20 % (24-48) Monocytes (%) (Auto) 8 % (0-9) Eosinophils (%) (Auto) 2 % (0-3) Basophils (%) (Auto) 1 % (0-3) Neutrophils # (Auto) 3.1 x10^3/uL (1.8-7.7) Lymphocytes # (Auto) 0.9 x10^3/uL (1.0-4.8) Monocytes # (Auto) 0.4 x10^3/uL (0.0-1.1) Eosinophils # (Auto) 0.1 x10^3/uL (0.0-0.7) Basophils # (Auto) 0.1 x10^3/uL (0.0-0.2) Sodium Level 141 mmol/L (136-145) 137 mmol/L (136-145) Potassium Level 4.9 mmol/L (3.5-5.1) 5.4 mmol/L (3.5-5.1) Chloride Level 102 mmol/L (98-107) 100 mmol/L (98-107) Carbon Dioxide Level 26 mmol/L (21-32) 25 mmol/L (21-32) Anion Gap 13 (6-14) 12 (6-14) Blood Urea Nitrogen 17 mg/dL (8-26) 29 mg/dL (8-26) Creatinine 4.2 mg/dL (0.7-1.3) 5.6 mg/dL (0.7-1.3) Estimated GFR (Cockcroft-Gault) 17.5 12.6 BUN/Creatinine Ratio 4 (6-20) Glucose Level 404 mg/dL (70-99) 616 mg/dL (70-99) Calcium Level 8.2 mg/dL (8.5-10.1) 8.4 mg/dL (8.5-10.1) Total Bilirubin 0.3 mg/dL (0.2-1.0) Aspartate Amino Transf (AST/SGOT) 15 U/L (15-37) Alanine Aminotransferase (ALT/SGPT) 16 U/L (16-63) Alkaline Phosphatase 85 U/L (46-116) Troponin I High Sensitivity 30 ng/L (4-75) 29 ng/L (4-75) Total Protein 6.1 g/dL (6.4-8.2) Albumin 3.1 g/dL (3.4-5.0) Albumin/Globulin Ratio 1.0 (1.0-1.7) Glucose (Fingerstick) 568 mg/dL (70-99) Laboratory Tests Test 04/09/22 18:05 04/09/22 20:30 04/10/22 07:53 04/10/22 08:30 White Blood Count 4.5 x10^3/uL (4.0-11.0) 5.8 x10^3/uL (4.0-11.0) Red Blood Count 2.42 x10^6/uL (4.30-5.70) 2.28 x10^6/uL (4.30-5.70) Hemoglobin 7.9 g/dL (13.0-17.5) 7.4 g/dL (13.0-17.5) Hematocrit 23.8 % (39.0-53.0) 23.0 % (39.0-53.0) Mean Corpuscular Volume 98 fL (79-100) 101 fL (79-100) Mean Corpuscular Hemoglobin 32 pg (25-35) 32 pg (25-35) Mean Corpuscular Hemoglobin Concent 33 g/dL (31-37) 32 g/dL (31-37) Red Cell Distribution Width 14.1 % (11.5-14.5) 14.6 % (11.5-14.5) Platelet Count 158 x10^3/uL (140-400) 154 x10^3/uL (140-400) Neutrophils (%) (Auto) 69 % (31-73) Lymphocytes (%) (Auto) 20 % (24-48) Monocytes (%) (Auto) 8 % (0-9) Eosinophils (%) (Auto) 2 % (0-3) Basophils (%) (Auto) 1 % (0-3) Neutrophils # (Auto) 3.1 x10^3/uL (1.8-7.7) Lymphocytes # (Auto) 0.9 x10^3/uL (1.0-4.8) Monocytes # (Auto) 0.4 x10^3/uL (0.0-1.1) Eosinophils # (Auto) 0.1 x10^3/uL (0.0-0.7) Basophils # (Auto) 0.1 x10^3/uL (0.0-0.2) Sodium Level 141 mmol/L (136-145) 137 mmol/L (136-145) Potassium Level 4.9 mmol/L (3.5-5.1) 5.4 mmol/L (3.5-5.1) Chloride Level 102 mmol/L (98-107) 100 mmol/L (98-107) Carbon Dioxide Level 26 mmol/L (21-32) 25 mmol/L (21-32) Anion Gap 13 (6-14) 12 (6-14) Blood Urea Nitrogen 17 mg/dL (8-26) 29 mg/dL (8-26) Creatinine 4.2 mg/dL (0.7-1.3) 5.6 mg/dL (0.7-1.3) Estimated GFR (Cockcroft-Gault) 17.5 12.6 BUN/Creatinine Ratio 4 (6-20) Glucose Level 404 mg/dL (70-99) 616 mg/dL (70-99) Calcium Level 8.2 mg/dL (8.5-10.1) 8.4 mg/dL (8.5-10.1) Total Bilirubin 0.3 mg/dL (0.2-1.0) Aspartate Amino Transf (AST/SGOT) 15 U/L (15-37) Alanine Aminotransferase (ALT/SGPT) 16 U/L (16-63) Alkaline Phosphatase 85 U/L (46-116) Troponin I High Sensitivity 30 ng/L (4-75) 29 ng/L (4-75) Total Protein 6.1 g/dL (6.4-8.2) Albumin 3.1 g/dL (3.4-5.0) Albumin/Globulin Ratio 1.0 (1.0-1.7) Glucose (Fingerstick) 568 mg/dL (70-99) Brief Hospital Course Mr Aviles is a 61yo male with PMHx diabetes mellitus, hypertension, hyperlipidemia, anemia of chronic kidney disease, secondary hyperparathyroidism, ESRD on HD on MWF who came to ED after his vascular access needle became dislodged and he had blood loss and experienced some dizziness and diaphoresis as well as chest pressure. He was brought to the hospital for further evaluation and management. He experienced the same thing almost exactly 1 week prior after dialysis session and did have a significant drop in his hemoglobin did not require transfusion at the time. He was discharged home with home health Labs with WBC 4.5, Hb 7.9, platelets 158, NA 141, K4.9, BUN 17, CR 4.2, glucose 404, calcium 8.2, albumin 3.1, high-sensitivity troponin is 30 EKG concern for Mobitz type II block with intermittent complete heart block on telemetry. Cardiology was consulted from the ED patient notes he has a leadless pacemaker. His chest pain resolved with PPI and Tums. He is noted be paced on telemetry monitoring discussed with cardiology has outpatient follow-up with his primary target trimmer. His blood glucose was elevated notes he is brittle diabetic and did not receive his glargine insulin last night. Discussed with him and his daughter bedside he is going to go to dialysis clinic for his recent fistula problems outpatient and already has home health established. Chest pain - GERD Acute blood loss anemia -did not require transfusion. Will need outpatient monitoring Hyperkalemia -stop losartan. Low K diet emphasized Dizziness -likely due to acute blood loss and orthostasis improved. ESRD Tuesday - RUE fistula Diabetes -low sliding scale and basal insulin. Would not schedule insulin given some hypoglycemic episodes. 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 Greater than 30 minutes spent on discharge home with home health Discharge Information Condition at Discharge: Improved Follow Up: Weeks (1) Disposition/Orders: D/C to Home w/ HH Scheduled Amlodipine Besylate (Amlodipine Besylate) 10 Mg Tablet, 10 MG PO DAILY, (R eported) Entered as Reported by: MARRY SIMMONS on 07/26/14217 Last Action: Continued on 04/10/22751 by KARLEE DASH MD Aspirin (Aspir 81) 81 Mg Tablet.dr, 81 MG PO DAILY, (Reported) Entered as Reported by: MARRY SIMMONS on 07/26/14217 Last Action: Continued on 04/10/22751 by KARLEE DASH MD Atorvastatin Calcium (Atorvastatin Calcium) 20 Mg Tablet, 20 MG PO HS for FOR CHOLESTEROL, #30 Ref 0 (Reported) Entered as Reported by: MARRY SIMMONS on 07/26/14217 Last Action: Continued on 04/10/22751 by KARLEE DASH MD Cholecalciferol (Vitamin D3) (Vitamin D3) 1,000 Unit Tablet, 1,000 UNIT PO DAILY, (Reported) Entered as Reported by: MARRY SIMMONS on 07/26/14217 Last Action: Continued on 04/10/22751 by KARLEE DASH MD Clopidogrel Bisulfate (Plavix) 75 Mg Tablet, 75 MG PO DAILYWBKFT, #10 Ref 0 Prescribed by: TATI DAN on 08/03/14 1246 Last Action: Continued on 04/10/22752 by KARLEE DASH MD Insulin Glargine,Hum.rec.anlog (Lantus Solostar) 100 Unit/1 Ml Insuln.pen, 15 UNIT SQ QHS for blood glucose, #15 Ref 3 (Reported) Entered as Reported by: VIJAYA NELSON on 04/03/22609 Last Action: Converted on 04/10/22752 by KARLEE DASH MD Insulin Regular, Human (Novolin R) 100 Unit/1 Ml Vial, Unknown Dose IJ TIDWMEALS for blood glucose SLIDING SCALE ON, (Reported) Entered as Reported by: VIJAYA NELSON on 04/03/22611 Scheduled PRN Sennosides (Senokot) 8.6 Mg Tablet, 8.6 MG PO PRN DAILY PRN for CONSTIPATION, (Reported) Entered as Reported by: MARRY SIMMONS on 07/26/14217 Trazodone Hcl (Trazodone Hcl) 50 Mg Tablet, 50 MG PO PRN QHS PRN for INSOMNIA, (Reported) Entered as Reported by: MARRY SIMMONS on 07/26/14217 Last Action: Continued on 04/10/22752 by KARLEE DASH MD Discontinued Medications Acetaminophen With Codeine (Tylenol With Codeine #3 Tablet) 1 Each Tablet, 1 TAB PO Q6HRS, #30 (Reported) Entered as Reported by: MARRY SIMMONS on 07/26/14217 Clonidine Hcl (Clonidine Hcl) 0.3 Mg Tablet, 0.3 MG PO TID, (Reported) Entered as Reported by: MARRY SIMMONS on 07/26/14217 Hydralazine Hcl (Hydralazine Hcl) 100 Mg Tablet, 1 TAB PO TID, #90 Ref 3 (Reported) Entered as Reported by: MARRY SIMMONS on 07/26/14217 Labetalol Hcl (Trandate) 200 Mg Tablet, 100 MG PO BID, #60 Ref 5 Prescribed by: TATI DAN on 08/03/141245 Losartan Potassium (Cozaar ) 50 Mg Tablet, 50 MG PO DAILY, #30 Ref 5 Prescribed by: TATI DAN on 08/03/14 124 Metolazone (Zaroxolyn) 5 Mg Tablet, 5 MG PO TID, #90 Ref 5 Prescribed by: TATI DAN on 08/03/141245 [Bumetanide] 1 MG TABLET, 2 MG PO BID92, #60 Ref 2 Prescribed by: TATI DAN on 08/03/141245 [Hydralazine Hcl] 50 MG TABLET, 100 MG PO TID, #90 Ref 5 Prescribed by: TATI DAN on 08/03/14 124 Justicifation of Admission Dx: Justifications for Admission: Justification of Admission Dx: N/A KARLEE DASH MD April 10, 2022 10:38
[2022-04-10 11:03] VITALS: BP 106/52
--- NOTE | 2022-04-10 11:55 | NUR ---
Discharge Note: Mumtaz Aviles Discharge instructions and discharge home medications reviewed with Patient and daughter with a copy given. All questions have been answered and understanding verbalized. Nephrology consulted this AM. No longer needed.Pt in stable condition at time of DC. Pt BG greater than 400, however patient refusing treatment due to discharge status. Pt refusing meal and medications.
[2022-04-10] MEDS ORDERED: INSULIN GLARGINE SYRINGE. SQ SCH (21:00)
[2022-04-10] MEDS ORDERED: ATORVASTATIN CALCIUM 20 MG TABLET PO SCH (21:00)
--- NOTE | 2022-04-13 08:28 | EKG ---
[facility] [address] [place] [address] Test Date: 2022-04-09 Test Time: 17:48:03 Pat Name: Wyatt Aviles Department: Room: 648 1 Gender: M Manager Office: : 1960 Requested By: VICTOR M ESPINOSA Order Number: [id number] Reading MD: Segun Giang MD Measurements Intervals [place] Rate: 56 P: MT: QRS: 220 QRSD: 162 T: 79 QT: 498 QTc: 483 Interpretive Statements SR LIMB LEAD MISPLACEMENT VERSUS PACING ARTIFACT PROBABLE HEART BLOCK DUE TO ASYNCHRONOUS VENTRICULAR PACING Electronically Signed On 04-13-2022 11:15:41 CDT by Segun Giang MD
== END 2022-04-10 11:57 | disposition home health service (06) | DRG 698 ==
LOC: ER 17:20 → 6 SOUTH 22:00
PROVIDERS: ADMIT Internal Medicine; ATTEND Internal Medicine
DX: T82.42XA Displacement of vascular dialysis catheter, initial encounter (principal); N18.6 End stage renal disease; I44.2 Atrioventricular block, complete; D62 Acute posthemorrhagic anemia; I12.0 Hypertensive chronic kidney disease with stage 5 chronic kidney disease or end stage renal disease; N25.81 Secondary hyperparathyroidism of renal origin; D63.1 Anemia in chronic kidney disease; E11.22 Type 2 diabetes mellitus with diabetic chronic kidney disease; E11.51 Type 2 diabetes mellitus with diabetic peripheral angiopathy without gangrene; E11.649 Type 2 diabetes mellitus with hypoglycemia without coma; E11.65 Type 2 diabetes mellitus with hyperglycemia; E78.00 Pure hypercholesterolemia, unspecified; E78.5 Hyperlipidemia, unspecified; K21.9 Gastro-esophageal reflux disease without esophagitis; Z82.49 Family history of ischemic heart disease and other diseases of the circulatory system; Z83.3 Family history of diabetes mellitus; Z86.74 Personal history of sudden cardiac arrest; Z95.0 Presence of cardiac pacemaker; Z99.2 Dependence on renal dialysis; M19.90 Unspecified osteoarthritis, unspecified site; Z88.8 Allergy status to other drugs, medicaments and biological substances
CPT/HCPCS: 36415; 71045; 80048; 80053; 82962; 84484; 85025; 85027; 93005; J1815; J3010; J3490; 99285-25; G0378